=== PATIENT | female | born 1935 | race Caucasian/White ===

== ENCOUNTER → 2016-07-19 | Day surgery (SDC) | payer MEDICARE, BC ==
[~2016-07-19] VITALS: Ht 160 cm; Wt 63.5 kg
[~2016-07-19] MED LIST: AMOXICILLIN500 MG PO; ATIVAN0.5 MG PO; CATAPRES0.1 MG PO; CLARINEX5 MG PO; CRESTOR10 MG PO; DIOVAN320 MG PO; LASIX40 MG PO; METFORMIN500 MG PO; NORVASC5 MG PO; PREMARIN0.3 MG PO; PROTONIX40 MG PO; REGLAN10 MG PO; TOPROL-XL200 MG PO; ULTRAM50 MG PO
--- NOTE | ~2016-07-19 | O ---
[place], [place] OPERATIVE NOTE NAME: TEODORO AHUJA [facility] #: [id number] UNIT #: [id number] ROOM: DOCTOR: YAKOV CABRERA MD BIRTHDATE: [birth year] DOS: 07/19/2016 PREOPERATIVE DIAGNOSIS: Left gonzalez and left medial knee skin lesions. POSTOPERATIVE DIAGNOSIS: Left gonzalez and left medial knee skin lesions. PROCEDURE: Excision of left gonzalez and left medial knee skin lesions. SURGEON: Yakov Cabrera MD VOCATIONAL CASE MANAGER: MS4. ANESTHESIA: Local (1% plain lidocaine). INDICATIONS: This is an 81-year-old lady with multiple skin lesions in the past who is here for removal of 2 lesions on her left lower extremity, one of them is on the gonzalez anteriorly and the other one is on the left medial aspect of the knee. The procedure and its complications were explained to the patient in detail preoperatively and she agreed to proceed. DESCRIPTION OF PROCEDURE: After identifying the patient, the patient was brought to the operating suite and laid supine on the operating room table. The parts were then painted and draped in the usual sterile fashion. A time-out procedure was called. The incision was marked and local anesthesia was infiltrated. The skin lesions were then excised in its entirety and sent for histopathological diagnosis. Hemostasis was achieved with the help of electrocautery and the skin edges were then approximated with the help of 4-0 Vicryl in a subcuticular running fashion. Dressing was placed to both lesions. The patient tolerated the procedure well and was taken to the recovery room in stable fashion. There were no complications. Yakov Cabrera MD CM:OPRECORD:OPERATIVE NOTE [id number] YAKOV CABRERA MD 07/19/161946 interface
[2016-07-19 11:00] VITALS: BP 97/48
[2016-07-19 11:29] VITALS: BP 152/84
[2016-07-19 11:44] VITALS: BP 166/99
[2016-07-19 11:55] VITALS: BP 168/82
== END | disposition home or self-care (01) ==
LOC: SDC 07-18 14:00
DX: C44.729 Squamous cell carcinoma of skin of left lower limb, including hip (principal); E11.9 Type 2 diabetes mellitus without complications; K21.9 Gastro-esophageal reflux disease without esophagitis; I10 Essential (primary) hypertension; J45.909 Unspecified asthma, uncomplicated; G43.909 Migraine, unspecified, not intractable, without status migrainosus; E78.5 Hyperlipidemia, unspecified; Z90.710 Acquired absence of both cervix and uterus; Z98.890 Other specified postprocedural states

== ENCOUNTER → 2016-09-13 | Day surgery (SDC) | payer MEDICARE, BC ==
[~2016-09-13] VITALS: Ht 167.6 cm; Wt 63.5 kg
[2016-09-13 11:45] VITALS: BP 169/70
[2016-09-13 12:40] VITALS: BP 160/78
[2016-09-13 12:49] VITALS: BP 160/78
[2016-09-13 12:55] VITALS: BP 162/85
[2016-09-13 13:05] VITALS: BP 145/88
[2016-09-13 13:20] VITALS: BP 145/80
== END | disposition home or self-care (01) ==
LOC: SDC 09-11 12:30
DX: L57.0 Actinic keratosis (principal); E11.9 Type 2 diabetes mellitus without complications; K21.9 Gastro-esophageal reflux disease without esophagitis; I10 Essential (primary) hypertension; J45.909 Unspecified asthma, uncomplicated; Z90.49 Acquired absence of other specified parts of digestive tract; Z98.890 Other specified postprocedural states; Z88.1 Allergy status to other antibiotic agents; Z85.828 Personal history of other malignant neoplasm of skin; Z88.8 Allergy status to other drugs, medicaments and biological substances

== ENCOUNTER → 2017-04-05 | Outpatient (CLI) | payer MEDICARE, BC | END | disposition home or self-care (01) | LOC: RAD 03-12 11:00 | DX: Z13.820 Encounter for screening for osteoporosis (principal) ==

== ENCOUNTER 2017-05-31 15:00 | Inpatient (IN) | payer MEDICARE, BC ==
[~2017-05-31] VITALS: Wt 62.1 kg
--- NOTE | ~2017-05-31 | CON ---
[place], [place] REPORT OF CONSULTATION [id number] UN[facility] #: [id number] ROOM: 519 DOCTOR: RODNEY ARREOLA MD BIRTHDATE: [birth year] DOS: 06/01/2017 REASON FOR CONSULTATION: Syncope and tachycardia. HISTORY OF PRESENT ILLNESS: The patient is an 81-year-old patient with history of paroxysmal atrial fibrillation, hypertension, dyslipidemia, presents to Emergency Room after "syncope." Evidently, the patient was at a [facility] where this episode occurred. Initially, the patient felt feeling hot and she took her jacket off and then feeling dizzy and lightheaded and subsequently patient passed out. Family was there and her daughter, she tried to catch her and lower to the ground. The patient came around quickly and later on there was "some vomiting" and the patient did urinate. She denied any chest pain, palpitations. No fever and chills. No heart palpitations prior to this. She denies any shortness of breath or PND. No orthopnea. No headache. No tingling, numbness or weakness. No visual symptoms. No genitourinary symptoms. The patient admitted to the hospital and Cardiology was consulted for further recommendations. REVIEW OF SYSTEMS: Review of 10 systems negative except as mentioned above. PAST MEDICAL HISTORY: 1. Paroxysmal atrial fibrillation. 2. Chronic diastolic heart failure. 3. Hypertension. 4. Dyslipidemia. 5. Acid reflux. PAST SURGICAL HISTORY: History of cholecystectomy and appendicectomy. SOCIAL HISTORY: The patient does not drink or smoke, does not use illicit drugs. FAMILY HISTORY: Noncontributory due to her age. ALLERGIES: Noted including INDOMETHACIN, PROPOXYPHENE, SULFA and HYDROCODONE. HOME MEDICATIONS: Reviewed. PHYSICAL EXAMINATION: VITAL SIGNS: Blood pressure 160/83, pulse 69, respiratory rate was 16, weight 62.1 kilos. GENERAL: Alert, comfortable, in no acute distress. HEENT: Pupils are round and equal. No jaundice. Tongue was moist and pharynx clear. NECK: Supple. No distended neck veins. No carotid bruit. CHEST: Symmetrical, nontender. LUNGS: Clear to auscultation bilaterally. HEART: Regular rhythm, grade 1/6 systolic murmur. No palpable thrills. ABDOMEN: Benign, nontender. Bowel sounds normal. EXTREMITIES: Showed no edema. Distal pulses palpable. [place], [place] REPORT OF CONSULTATION NAME: [facility]O AHUJA [facility]: [id number] UNIT #: [id number] ROOM: [facility] DOCTOR: ELBA FARIAS,RODNEY BIRTHDATE: [birth year] SKIN: Warm and dry. No cyanosis. No clubbing. NEUROLOGIC: The patient is alert, oriented. No focal neurologic deficit. RECTAL: Deferred. REVIEW OF THE DIAGNOSTIC TESTS: EKG shows sinus rhythm, normal QT interval. Her echo from July 2614 showed normal LV function with mild mitral regurgitation and mild tricuspid regurgitation. Holter monitor in 2013 showed no significant arrhythmias. IMPRESSION: 1. Syncope, etiology unknown. 2. Rule out any gwendolyn or tachyarrhythmias. The patient has no orthostasis. 3. Paroxysmal atrial fibrillation, in sinus rhythm. Continue Pradaxa. 3. Hypertension. 4. Dyslipidemia. 5. 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 RECOMMENDATIONS: The patient would like to go home today. I would recommend outpatient echo for LV function and valvular function and also outpatient 2-4 week event monitor to assess for any gwendolyn or tachyarrhythmias. The patient is taking both amlodipine and Cardizem. I would recommend discontinuing her amlodipine. Further testing, which is echo and outpatient event monitor discussed with the patient, her , who is at bedside and all questions were answered. The patient insisting on going home today and she will be arranged for outpatient testing next week. The patient advised to drink plenty of fluids and avoid any dehydration or sudden change in the position. Currently, patient is in no acute heart failure, no chest pain. Her heart rates are stable. Hence, she may be discharged today per her request. RODNEY ARREOLA MD CM:CONSTR:REPORT OF CONSULTATION 162 06/01/17 1802 interface
--- NOTE | ~2017-05-31 | EKG ---
[place], [place] ELECTROCARDIOGRAM REPORT NAME: TEODORO AHUJA UNIT #: [id number] ROOM: [facility] DOCTOR: ELBA FARIAS,RODNEY BIRTHDATE: [birth year] DOS: 05/31/2017 TIME: 1536 IMPRESSION: 1. Sinus rhythm. 2. Baseline artifacts. 3. Normal QT interval. 4. No ischemic changes. RODNEY ARREOLA MD CM:EKGRPT:ELECTROCARDIOGRAM REPORT [id number] RODNEY ARREOLA MD
[2017-05-31 15:03] VITALS: BP 156/73
[2017-05-31 15:56] LABS: BILIRUBIN NEGATIVE (NEGATIVE); BLOOD 2+ (NEGATIVE); CLARITY CLEAR (CLEAR); COLOR YELLOW (YELLOW); GLUCOSE NEGATIVE (NEGATIVE); KETONE NEGATIVE (NEGATIVE); LEUKO ESTERASE NEGATIVE (NEGATIVE); NITRITE NEGATIVE (NEGATIVE); UROBILINOGEN 0.2 E.U./dl (0.2-1.0)
[2017-05-31 16:05] LABS: BASO % 0.4 % (0.0-1.0); EOS # 0.1 10*3/uL (0.0-0.4); EOS % 1.1 % (1.0-4.0); HEMATOCRIT 39.4 % (37.0-47.0); MEAN CELL VOLUME 90.6 fl (81.0-99.0); MEAN CORPUSCULAR HGB 29.9 pg (27.0-31.0); MEAN PLATELET VOLUME 10.3 fl (9.6-12.3); MONO % 10.8 % (3.0-9.0); NEUT # 5.9 10*3/uL (2.3-7.9); NEUT % 65.4 % (47.0-73.0); PLATELET COUNT AUTOMATED 261 10*3/uL (130-400); RED BLOOD COUNT 4.35 10*6/uL (4.10-5.10); RED CELL DISTRI WIDTH 14.3 % (0-14.5)
[2017-05-31 16:06] LABS: BACTERIA TRACE; WBC 0-2 wbc/hpf (0-5)
[2017-05-31 16:14] LABS: ACT PARTIAL THROMBO TIME 34.8 SECONDS (20.8-31.5)
[2017-05-31 16:24] LABS: ALBUMIN 3.9 gm/dl (3.1-4.5); ALKALINE PHOSPHATASE 25 U/L (45-117); BUN 11 mg/dl (7-24); CHLORIDE 100 mmol/L (98-107); LIPASE 291 U/L (73-393); SGOT/AST 17 IU/L (3-35); SGPT/ALT 14 U/L (12-78); SODIUM 137 mmol/L (136-145); TOTAL PROTEIN 7.5 gm/dL (6.4-8.2)
[2017-05-31 16:26] LABS: TROPONIN I < 0.015 ng/ml (<0.045)
[2017-05-31 16:50] VITALS: BP 120/54; BP 151/91
[2017-05-31] MEDS ORDERED: CARTIA XT180 MG PO (18:08)
[2017-05-31] MEDS ORDERED: PRADAXA150 MG PO (18:08)
[2017-05-31 18:32] VITALS: BP 155/83
[2017-05-31] MEDS ORDERED: OCEAN104 ML NAS (18:47)
[2017-05-31 20:00] VITALS: BP 138/69
[2017-06-01] VITALS: BP 147/71
[2017-06-01 06:48] LABS: BASO % 0.6 % (0.0-1.0); EOS # 0.1 10*3/uL (0.0-0.4); EOS % 2.1 % (1.0-4.0); HEMATOCRIT 35.5 % (37.0-47.0); HEMOGLOBIN 11.7 g/dl (12.0-16.0); LYMPH # 2.8 10*3/uL (1.3-4.4); MEAN CELL VOLUME 90.8 fl (81.0-99.0); MEAN CORPUSCULAR HGB 29.9 pg (27.0-31.0); MEAN PLATELET VOLUME 10.5 fl (9.6-12.3); MONO % 15.7 % (3.0-9.0); NEUT # 2.5 10*3/uL (2.3-7.9); NEUT % 38.4 % (47.0-73.0); PLATELET COUNT AUTOMATED 228 10*3/uL (130-400); RED BLOOD COUNT 3.91 10*6/uL (4.10-5.10); RED CELL DISTRI WIDTH 14.5 % (0-14.5); WHITE BLOOD COUNT 6.5 10*3/uL (4.8-10.8)
[2017-06-01 07:13] LABS: ALBUMIN 3.2 gm/dl (3.1-4.5); ALKALINE PHOSPHATASE 22 U/L (45-117); BUN 8 mg/dl (7-24); CHLORIDE 107 mmol/L (98-107); CHOLESTEROL 123 mg/dL (<200); CREATININE 0.68 mg/dL (0.55-1.02); FREE T4 0.98 ng/dl (0.76-1.46); HDL CHOLESTEROL 54 mg/dl (40-60); LDL CHOLESTEROL 44 mg/dL (9-159); PHOSPHOROUS 3.7 mg/dL (2.5-4.9); POTASSIUM 3.6 mmol/L (3.5-5.1); SGOT/AST 10 IU/L (3-35); SGPT/ALT 13 U/L (12-78); SODIUM 142 mmol/L (136-145); TOTAL PROTEIN 6.1 gm/dL (6.4-8.2); TRIGLYCERIDES 126 mg/dl (<150); VLDL CHOLESTEROL 25 mg/dL (6-40)
[2017-06-01 08:00] VITALS: BP 159/70
[2017-06-01 08:13] LABS: VITAMIN D, 25-HYDROXY 53.2 ng/mL (30-100)
[2017-06-01] MEDS ORDERED: PREDNISONE10 MG PO (09:58)
[2017-06-01] MEDS ORDERED: AUGMENTIN 875875 MG PO (09:58)
[2017-06-01 12:00] VITALS: BP 160/83
== END 2017-06-01 14:00 | disposition left against medical advice (07) | DRG 312 ==
LOC: ED 15:00 → EDHOLD 16:53 → 5E 16:54
PROVIDERS: Emergency Medicine; Internal Medicine Hospice and Palliative Medicine
DX: R55 Syncope and collapse (principal); R65.11 Systemic inflammatory response syndrome (SIRS) of non-infectious origin with acute organ dysfunction; E11.65 Type 2 diabetes mellitus with hyperglycemia; E87.2 Acidosis; I50.32 Chronic diastolic (congestive) heart failure; I11.0 Hypertensive heart disease with heart failure; I49.5 Sick sinus syndrome; D72.810 Lymphocytopenia; I48.0 Paroxysmal atrial fibrillation; Z53.21 Procedure and treatment not carried out due to patient leaving prior to being seen by health care provider; K21.9 Gastro-esophageal reflux disease without esophagitis; E78.5 Hyperlipidemia, unspecified; R00.0 Tachycardia, unspecified; Z90.49 Acquired absence of other specified parts of digestive tract; Z82.49 Family history of ischemic heart disease and other diseases of the circulatory system; Z80.3 Family history of malignant neoplasm of breast; Z83.6 Family history of other diseases of the respiratory system; Z88.1 Allergy status to other antibiotic agents; Z88.2 Allergy status to sulfonamides; Z88.8 Allergy status to other drugs, medicaments and biological substances; Z79.899 Other long term (current) drug therapy; Z90.710 Acquired absence of both cervix and uterus

== ENCOUNTER → 2017-06-04 | Outpatient (CLI) | payer MEDICARE, BC ==
[~2017-06-04] MED LIST changes: +AUGMENTIN 875875 MG PO; +CARTIA XT180 MG PO; +OCEAN104 ML NAS; +PRADAXA150 MG PO; +PREDNISONE10 MG PO
== END | disposition home or self-care (01) ==
LOC: CARD 07:46
DX: R55 Syncope and collapse (principal)

== ENCOUNTER 2017-12-02 11:24 | Inpatient (IN) | payer MEDICARE, BC ==
[~2017-12-02] VITALS: Ht 160 cm; Wt 65.8 kg
--- NOTE | ~2017-12-02 | EKG ---
[place], [place] ELECTROCARDIOGRAM REPORT NAME: TEODORO AHUJA UNIT #: [id number] ROOM: 425 DOCTOR: TELLY DRAFT REPORT BIRTHDATE: [birth year] [facility] Test Date: 2017-12-02 Test Time: 11:52:57 Pat Name: TEODORO AHUJA Department: Room: 425 Gender: F Senior Producer: Yue Bustamante : 1935 Requested By: DULCE MARIA MUSTAFA Order Number: [id number] Reading MD: Marciano Vann MD Measurements Intervals [place] Rate: 83 P: 21 DC: 177 QRS: -8 QRSD: 83 T: 26 QT: 399 QTc: 469 Interpretive Statements Sinus rhythm Electronically Signed On 12-02-2017 20:46:41 PDT by Marciano Vann MD CM:EKGRPT:ELECTROCARDIOGRAM REPORT [id number] DULCE MARIA VEGA DRAFT REPORT DULCE MARIA MUSTAFA DO
[2017-12-02 11:30] VITALS: BP 123/71
[2017-12-02 11:48] LABS: BASO # 0.1 10*3/uL (0.0-0.1); BASO % 0.6 % (0.0-1.0); EOS # 0.1 10*3/uL (0.0-0.4); EOS % 0.6 % (1.0-4.0); HEMATOCRIT 38.5 % (37.0-47.0); HEMOGLOBIN 12.6 g/dl (12.0-16.0); LYMPH # 2.4 10*3/uL (1.3-4.4); LYMPH % 27.2 % (27.0-41.0); MEAN CELL VOLUME 86.7 fl (81.0-99.0); MEAN CORPUSCULAR HGB 28.4 pg (27.0-31.0); MEAN CORPUSCULAR HGB CONC 32.7 g/dl (33.0-37.0); MEAN PLATELET VOLUME 9.6 fl (9.6-12.3); MONO # 0.7 10*3/uL (0.1-1.0); MONO % 7.6 % (3.0-9.0); NEUT # 5.6 10*3/uL (2.3-7.9); NEUT % 63.7 % (47.0-73.0); PLATELET COUNT AUTOMATED 329 10*3/uL (130-400); RED BLOOD COUNT 4.44 10*6/uL (4.10-5.10); RED CELL DISTRI WIDTH 15.1 % (0-14.5); WHITE BLOOD COUNT 8.8 10*3/uL (4.8-10.8)
[2017-12-02 11:57] LABS: ACT PARTIAL THROMBO TIME 44.1 SECONDS (20.8-31.5); INTERNATIONAL NORM RATIO 1.1 (2.0-3.5)
[2017-12-02 12:03] LABS: ALBUMIN 4.1 gm/dl (3.1-4.5); ALKALINE PHOSPHATASE 33 U/L (45-117); BUN 10 mg/dl (7-24); CHLORIDE 101 mmol/L (98-107); CREATININE 0.99 mg/dL (0.55-1.02); LIPASE 323 U/L (73-393); POTASSIUM 4.2 mmol/L (3.5-5.1); SGOT/AST 15 IU/L (3-35); SGPT/ALT 16 U/L (12-78); SODIUM 137 mmol/L (136-145)
[2017-12-02 12:11] LABS: TROPONIN I < 0.015 ng/ml (<0.045)
[2017-12-02 12:15] VITALS: BP 125/65
[2017-12-02 14:20] VITALS: BP 135/67
[2017-12-02 14:25] VITALS: BP 126/64
[2017-12-02] MEDS ORDERED: DIOVAN320 MG PO (15:21)
[2017-12-02] MEDS ORDERED: COZAAR100 MG PO (15:23)
[2017-12-02] MEDS ORDERED: REGLAN10 M1 PO (15:25)
[2017-12-02] MEDS ORDERED: PREMARIN0.3 M1 PO (15:26)
[2017-12-02 16:00] VITALS: BP 122/63
[2017-12-02 20:00] VITALS: BP 99/53
[2017-12-03] VITALS: BP 134/61
[2017-12-03 07:03] LABS: BASO % 0.2 % (0.0-1.0); HEMATOCRIT 34.3 % (37.0-47.0); HEMOGLOBIN 11.1 g/dl (12.0-16.0); LYMPH # 0.8 10*3/uL (1.3-4.4); LYMPH % 14.8 % (27.0-41.0); MEAN CELL VOLUME 86.2 fl (81.0-99.0); MEAN CORPUSCULAR HGB 27.9 pg (27.0-31.0); MEAN CORPUSCULAR HGB CONC 32.4 g/dl (33.0-37.0); MEAN PLATELET VOLUME 10.1 fl (9.6-12.3); MONO # 0.1 10*3/uL (0.1-1.0); MONO % 1.2 % (3.0-9.0); NEUT # 4.7 10*3/uL (2.3-7.9); NEUT % 83.3 % (47.0-73.0); PLATELET COUNT AUTOMATED 269 10*3/uL (130-400); RED BLOOD COUNT 3.98 10*6/uL (4.10-5.10); RED CELL DISTRI WIDTH 14.7 % (0-14.5); WHITE BLOOD COUNT 5.7 10*3/uL (4.8-10.8)
[2017-12-03 07:32] LABS: BUN 10 mg/dl (7-24); CHLORIDE 104 mmol/L (98-107); CREATININE 0.69 mg/dL (0.55-1.02); POTASSIUM 3.7 mmol/L (3.5-5.1); SODIUM 139 mmol/L (136-145)
[2017-12-03 07:42] LABS: THYROID STIM HORMONE (HS) 0.834 uIU/ml (0.358-4.75)
[2017-12-03 12:00] VITALS: BP 136/65
[2017-12-03 16:00] VITALS: BP 126/61
[2017-12-03 20:00] VITALS: BP 126/59
[2017-12-04 08:01] LABS: BASO % 0.1 % (0.0-1.0); EOS % 0.1 % (1.0-4.0); HEMATOCRIT 33.8 % (37.0-47.0); HEMOGLOBIN 11.2 g/dl (12.0-16.0); LYMPH # 1.9 10*3/uL (1.3-4.4); LYMPH % 14.6 % (27.0-41.0); MEAN CELL VOLUME 84.9 fl (81.0-99.0); MEAN CORPUSCULAR HGB 28.1 pg (27.0-31.0); MEAN CORPUSCULAR HGB CONC 33.1 g/dl (33.0-37.0); MEAN PLATELET VOLUME 9.3 fl (9.6-12.3); MONO # 1.3 10*3/uL (0.1-1.0); NEUT # 9.5 10*3/uL (2.3-7.9); NEUT % 74.6 % (47.0-73.0); PLATELET COUNT AUTOMATED 286 10*3/uL (130-400); RED BLOOD COUNT 3.98 10*6/uL (4.10-5.10); RED CELL DISTRI WIDTH 15.2 % (0-14.5); WHITE BLOOD COUNT 12.8 10*3/uL (4.8-10.8)
[2017-12-04 08:19] LABS: ALBUMIN 3.6 gm/dl (3.1-4.5); ALKALINE PHOSPHATASE 20 U/L (45-117); BUN 14 mg/dl (7-24); CHLORIDE 107 mmol/L (98-107); CREATININE 0.98 mg/dL (0.55-1.02); POTASSIUM 3.5 mmol/L (3.5-5.1); SGOT/AST 6 IU/L (3-35); SGPT/ALT 11 U/L (12-78); SODIUM 142 mmol/L (136-145); TOTAL PROTEIN 7.4 gm/dL (6.4-8.2)
[2017-12-04 12:00] VITALS: BP 119/76
[2017-12-04] MEDS ORDERED: PREDNISONE10 MG PO (13:30)
[2017-12-04] MEDS ORDERED: LEVAQUIN750 M1 PO (13:30)
== END 2017-12-04 16:30 | disposition home or self-care (01) | DRG 178 ==
LOC: ED 11:24 → EDHOLD 13:04 → 4E 13:04
PROVIDERS: Emergency Medicine; Family Medicine
DX: J15.6 Pneumonia due to other Gram-negative bacteria (principal); J45.21 Mild intermittent asthma with (acute) exacerbation; E87.2 Acidosis; I50.30 Unspecified diastolic (congestive) heart failure; K21.9 Gastro-esophageal reflux disease without esophagitis; E11.65 Type 2 diabetes mellitus with hyperglycemia; I11.0 Hypertensive heart disease with heart failure; I48.91 Unspecified atrial fibrillation; Z90.49 Acquired absence of other specified parts of digestive tract; Z90.710 Acquired absence of both cervix and uterus; Z82.49 Family history of ischemic heart disease and other diseases of the circulatory system; Z80.3 Family history of malignant neoplasm of breast; Z83.6 Family history of other diseases of the respiratory system; Z88.2 Allergy status to sulfonamides; Z88.8 Allergy status to other drugs, medicaments and biological substances; Z88.6 Allergy status to analgesic agent; Z79.84 Long term (current) use of oral hypoglycemic drugs

== ENCOUNTER → 2020-05-13 | Outpatient (CLI) | payer MEDICARE, BC ==
[~2020-05-13] MED LIST changes: +COZAAR100 MG PO; +LEVAQUIN750 M1 PO; +PREMARIN0.3 M1 PO; +REGLAN10 M1 PO
== END | disposition home or self-care (01) ==
LOC: ORTHO 10:24
PROVIDERS: ATTEND Orthopaedic Surgery
DX: M17.12 Unilateral primary osteoarthritis, left knee (principal)

== ENCOUNTER → 2021-04-27 | Outpatient (CLI) | payer MEDICARE | END | disposition home or self-care (01) | LOC: RAD 12:19 | PROVIDERS: ATTEND Nurse Practitioner Primary Care | DX: M25.551 Pain in right hip (principal) ==

== ENCOUNTER 2021-06-30 12:16 | Emergency (ER) | payer MEDICARE, BC ==
[~2021-06-30] VITALS: Wt 70.8 kg
[2021-06-30 12:46] LABS: BASO % 0.5 % (0.0-1.0); EOS # 0.1 10*3/uL (0.0-0.4); EOS % 2.3 % (1.0-4.0); HEMATOCRIT 42.2 % (37.0-47.0); LYMPH # 1.6 10*3/uL (1.3-4.4); LYMPH % 25.8 % (27.0-41.0); MEAN CELL VOLUME 79.3 fl (81.0-99.0); MEAN CORPUSCULAR HGB 24.6 pg (27.0-31.0); MEAN PLATELET VOLUME 10.4 fl (9.6-12.3); MONO # 0.6 10*3/uL (0.1-1.0); MONO % 9.4 % (3.0-9.0); NEUT # 3.7 10*3/uL (2.3-7.9); NEUT % 61.8 % (47.0-73.0); PLATELET COUNT AUTOMATED 277 10*3/uL (130-400); RED BLOOD COUNT 5.32 10*6/uL (4.10-5.10); RED CELL DISTRI WIDTH 17.4 % (0-14.5); WHITE BLOOD COUNT 6.1 10*3/uL (4.8-10.8)
[2021-06-30] MEDS ORDERED: GLIPIZIDE10 M2 PO (12:55)
[2021-06-30 12:58] LABS: ACT PARTIAL THROMBO TIME 40.4 SECONDS (20.0-32.1); INTERNATIONAL NORM RATIO 1.1 (2.0-3.5)
[2021-06-30 13:05] LABS: ALKALINE PHOSPHATASE 48 U/L (45-117); BUN 10 mg/dl (7-24); CHLORIDE 104 mmol/L (98-107); CREATININE 1.03 mg/dL (0.55-1.02); LIPASE 338 U/L (73-393); POTASSIUM 3.6 mmol/L (3.5-5.1); SGOT/AST 9 IU/L (3-35); SGPT/ALT 14 U/L (12-78); SODIUM 138 mmol/L (136-145); TOTAL PROTEIN 7.6 gm/dL (6.4-8.2)
[2021-06-30 13:22] LABS: BILIRUBIN Negative (Negative); BLOOD Negative (Negative); CLARITY Cloudy (Clear); COLOR Yellow (Yellow); GLUCOSE 2+ (Negative); KETONE Negative (Negative); LEUKO ESTERASE Negative (Negative); NITRITE Negative (Negative); PH 5.5 (4.5-8.0); UROBILINOGEN 0.2 E.U./dl (0.0-1.0)
[2021-06-30 13:46] LABS: BACTERIA 4+
== END 2021-06-30 14:22 | disposition home or self-care (01) ==
LOC: ED 12:16
PROVIDERS: Emergency Medicine
DX: E11.65 Type 2 diabetes mellitus with hyperglycemia (principal); Z88.2 Allergy status to sulfonamides; Z88.1 Allergy status to other antibiotic agents; Z88.8 Allergy status to other drugs, medicaments and biological substances; Z79.899 Other long term (current) drug therapy; Z90.49 Acquired absence of other specified parts of digestive tract; Z90.710 Acquired absence of both cervix and uterus; Z87.891 Personal history of nicotine dependence

== ENCOUNTER → 2022-04-09 | Outpatient (CLI) | payer MEDICARE, BC ==
[~2022-04-09] MED LIST changes: +ACTOS15 M1 PO; +BASAG SOL SC; +CEFDINIR300 MG PO; +CELEBREX100 MG PO; +ELIQUIS5 M1 PO; +GLIPIZIDE10 M2 PO; +LEVOFLOXACIN750 M2 PO; +VICTOZA 2-0.6 MG/0.1 SQ
[2022-04-09 14:03] LABS: BASO % 0.6 % (0.0-1.0); EOS # 0.1 10*3/uL (0.0-0.4); EOS % 1.2 % (1.0-4.0); HEMATOCRIT 39.2 % (37.0-47.0); LYMPH # 2.1 10*3/uL (1.3-4.4); LYMPH % 32.1 % (27.0-41.0); MEAN CELL VOLUME 81.5 fl (81.0-99.0); MEAN CORPUSCULAR HGB 24.9 pg (27.0-31.0); MEAN CORPUSCULAR HGB CONC 30.6 g/dl (33.0-37.0); MEAN PLATELET VOLUME 10.1 fl (9.6-12.3); MONO # 0.7 10*3/uL (0.1-1.0); NEUT # 3.7 10*3/uL (2.3-7.9); NEUT % 55.9 % (47.0-73.0); PLATELET COUNT AUTOMATED 312 10*3/uL (130-400); RED BLOOD COUNT 4.81 10*6/uL (4.10-5.10); RED CELL DISTRI WIDTH 17.8 % (0-14.5); WHITE BLOOD COUNT 6.6 10*3/uL (4.8-10.8)
[2022-04-09 14:22] LABS: ALKALINE PHOSPHATASE 44 U/L (46-116); BUN 11 mg/dl (9-23); CHLORIDE 101 mmol/L (98-107); FREE T4 1.11 ng/dl (0.89-1.76); POTASSIUM 4.1 mmol/L (3.4-5.1); THYROID STIM HORMONE (HS) 4.833 uIU/ml (0.550-4.780); TOTAL PROTEIN 7.1 gm/dL (6.0-8.0)
[2022-04-09 14:28] LABS: SGPT/ALT < 7 U/L (10-49)
== END | disposition home or self-care (01) ==
LOC: LAB 13:02
PROVIDERS: ATTEND Nurse Practitioner Family
DX: L92.0 Granuloma annulare (principal); I10 Essential (primary) hypertension; R73.9 Hyperglycemia, unspecified; R71.8 Other abnormality of red blood cells

== ENCOUNTER 2023-06-19 16:13 | Inpatient (IN) | payer MEDICARE, BC ==
[~2023-06-19] VITALS: Ht 160 cm; Wt 77.2 kg
[2023-06-19 16:26] VITALS: BP 167/72
[2023-06-19] MEDS ORDERED: Albuterol Sulf/Ipratropium 3 ML VIAL NEB ONE (16:45)
[2023-06-19] MEDS ORDERED: methylPREDNISolone sod succ 125 MG VIAL IV ONE (16:45)
[2023-06-19 17:08] LABS: BASO % 0.3 % (0.0-1.0); EOS # 0.1 10*3/uL (0.0-0.4); EOS % 0.8 % (1.0-4.0); HEMATOCRIT 42.8 % (37.0-47.0); LYMPH # 2.3 10*3/uL (1.3-4.4); MEAN CELL VOLUME 90.7 fl (81.0-99.0); MEAN PLATELET VOLUME 10.2 fl (9.6-12.3); MONO # 0.8 10*3/uL (0.1-1.0); MONO % 11.4 % (3.0-9.0); NEUT % 55.4 % (47.0-73.0); PLATELET COUNT AUTOMATED 207 10*3/uL (130-400); RED BLOOD COUNT 4.72 10*6/uL (4.10-5.10); RED CELL DISTRI WIDTH 15.5 % (0-14.5); WHITE BLOOD COUNT 7.3 10*3/uL (4.8-10.8)
[2023-06-19 17:23] LABS: ACT PARTIAL THROMBO TIME 29.2 SECONDS (20.0-32.1)
[2023-06-19 17:29] LABS: ALKALINE PHOSPHATASE 38 U/L (46-116); BUN 12 mg/dl (9-23); CHLORIDE 103 mmol/L (98-107); LIPASE 61 U/L (12-53); POTASSIUM 3.3 mmol/L (3.4-5.1); SGPT/ALT 7 U/L (5-49); TOTAL PROTEIN 6.9 gm/dL (6.0-8.0)
[2023-06-19] MEDS ORDERED: SODIUM CHLORIDE 0.9% 1,000 ML IV ONE (17:45)
[2023-06-19 17:59] VITALS: BP 159/83
[2023-06-19 18:00] LABS: BILIRUBIN Negative (Negative); BLOOD Trace-Intact (Negative); CLARITY Clear (Clear); COLOR Yellow (Yellow); GLUCOSE Negative (Negative); KETONE Negative (Negative); LEUKO ESTERASE Trace (Negative); NITRITE Positive (Negative)
[2023-06-19] MEDS ORDERED: LEVOFLOXACIN 150 ML IV ONE (18:05)
[2023-06-19] MEDS ORDERED: POTASSIUM CHLORIDE 20 MEQ TAB PO ONE (18:05)
[2023-06-19 18:06] LABS: BACTERIA 3+
[2023-06-19] MEDS ORDERED: TRAMADOL HCL50 MG PO (18:08)
[2023-06-19] MEDS ORDERED: TOPROL XL200 MG PO (18:09)
[2023-06-19] MEDS ORDERED: ELIQUIS5 M1 PO (18:09)
[2023-06-19] MEDS ORDERED: COZAAR50 M1 PO (18:09)
[2023-06-19] MEDS ORDERED: CARDIZEM CD180 MG PO (18:13)
[2023-06-19] MEDS ORDERED: CRESTOR5 M1 PO (18:14)
[2023-06-19] MEDS ORDERED: ATARAX,VISTARIL10 MG PO (18:15)
[2023-06-19] MEDS ORDERED: VITAMIN D31250 MC1 PO (18:16)
[2023-06-19] MEDS ORDERED: BASAG SOL IJ (18:17)
[2023-06-19 19:39] VITALS: BP 156/70
[2023-06-19] MEDS ORDERED: TEMAZEPAM 15 MG CAP PO PRN (20:10)
[2023-06-19] MEDS ORDERED: Magnesium Hydroxide 30 ML UDC PO PRN (20:10)
[2023-06-19] MEDS ORDERED: BISACODYL 5 MG TAB PO PRN (20:10)
[2023-06-19] MEDS ORDERED: ACETAMINOPHEN 325 MG TAB PO PRN (20:10)
[2023-06-19] MEDS ORDERED: DEXTROSE 10 % IN WATER 250 ML IV PRN (20:10)
[2023-06-19] MEDS ORDERED: ACETAMINOPHEN 650 MG SUPP R PRN (20:10)
[2023-06-19] MEDS ORDERED: BISACODYL 10 MG SUPP R PRN (20:10)
[2023-06-19] MEDS ORDERED: Albuterol Sulf/Ipratropium 3 ML VIAL NEB PRN (20:15)
[2023-06-19 21:05] VITALS: BP 139/62
[2023-06-19] MEDS ORDERED: GUAIFENESIN 600 MG TAB ER PO SCH (22:00)
[2023-06-19] MEDS ORDERED: INSULIN LISPRO 1 UNIT/0.01 ML SQ SCH (22:00)
[2023-06-20] VITALS: BP 128/62
[2023-06-20 06:43] LABS: LYMPH # 0.8 10*3/uL (1.3-4.4); LYMPH % 17.7 % (27.0-41.0); MEAN CELL VOLUME 90.3 fl (81.0-99.0); MEAN CORPUSCULAR HGB 29.2 pg (27.0-31.0); MEAN CORPUSCULAR HGB CONC 32.3 g/dl (33.0-37.0); MEAN PLATELET VOLUME 10.7 fl (9.6-12.3); MONO # 0.1 10*3/uL (0.1-1.0); MONO % 2.5 % (3.0-9.0); NEUT # 3.4 10*3/uL (2.3-7.9); NEUT % 79.3 % (47.0-73.0); PLATELET COUNT AUTOMATED 205 10*3/uL (130-400); RED BLOOD COUNT 4.32 10*6/uL (4.10-5.10); RED CELL DISTRI WIDTH 15.4 % (0-14.5); WHITE BLOOD COUNT 4.3 10*3/uL (4.8-10.8)
[2023-06-20 06:44] LABS: BUN 12 mg/dl (9-23); CHLORIDE 106 mmol/L (98-107); POTASSIUM 3.8 mmol/L (3.4-5.1)
[2023-06-20 08:00] VITALS: BP 135/77
[2023-06-20] MEDS ORDERED: XARELTO20 M1 PO (08:55)
[2023-06-20] MEDS ORDERED: methylPREDNISolone sod succ 40 MG VIAL IV SCH (10:00)
[2023-06-20] MEDS ORDERED: LORATADINE 10 MG TAB PO SCH (10:00)
[2023-06-20] MEDS ORDERED: APIXABAN 5 MG TAB PO SCH (10:00)
[2023-06-20] MEDS ORDERED: CELECOXIB 50 MG PO SCH (10:00)
[2023-06-20] MEDS ORDERED: RIVAROXABAN 15 MG TAB PO SCH (10:00)
[2023-06-20] MEDS ORDERED: METOPROLOL SUCCINATE XR 100 MG TAB PO SCH (10:00)
[2023-06-20] MEDS ORDERED: ATORVASTATIN CALCIUM 20 MG TAB PO SCH (10:00)
[2023-06-20] MEDS ORDERED: DILTIAZEM CD 180 MG CAP PO SCH (10:00)
[2023-06-20 12:00] VITALS: BP 155/74
[2023-06-20 16:00] VITALS: BP 138/73
[2023-06-20 20:00] VITALS: BP 153/61
[2023-06-20] MEDS ORDERED: Insulin Glargine, Recombinan 1 UNIT/0.01 ML SC SCH (22:00)
[2023-06-20] MEDS ORDERED: RIVAROXABAN 20 MG TAB PO SCH ×2 (22:00)
[2023-06-21] VITALS: BP 148/69
[2023-06-21 05:44] LABS: BUN 17 mg/dl (9-23); CHLORIDE 105 mmol/L (98-107); POTASSIUM 3.7 mmol/L (3.4-5.1)
[2023-06-21] MEDS ORDERED: Pantoprazole Sodium 40 MG TAB PO SCH (06:00)
[2023-06-21 06:28] LABS: BASO % 0.1 % (0.0-1.0); LYMPH # 1.4 10*3/uL (1.3-4.4); LYMPH % 10.4 % (27.0-41.0); MEAN CELL VOLUME 90.1 fl (81.0-99.0); MEAN CORPUSCULAR HGB 29.3 pg (27.0-31.0); MEAN CORPUSCULAR HGB CONC 32.6 g/dl (33.0-37.0); MEAN PLATELET VOLUME 10.4 fl (9.6-12.3); MONO # 0.7 10*3/uL (0.1-1.0); NEUT # 11.2 10*3/uL (2.3-7.9); NEUT % 83.7 % (47.0-73.0); PLATELET COUNT AUTOMATED 244 10*3/uL (130-400); RED BLOOD COUNT 4.33 10*6/uL (4.10-5.10); RED CELL DISTRI WIDTH 15.5 % (0-14.5); WHITE BLOOD COUNT 13.3 10*3/uL (4.8-10.8)
[2023-06-21 08:00] VITALS: BP 137/54
[2023-06-21] MEDS ORDERED: methylPREDNISolone sod succ 40 MG VIAL IV SCH (09:21)
[2023-06-21 12:00] VITALS: BP 135/57
[2023-06-21 16:00] VITALS: BP 139/65
[2023-06-21] MEDS ORDERED: LEVOFLOXACIN 150 ML IV SCH (16:00)
[2023-06-21 20:00] VITALS: BP 146/88
[2023-06-21] MEDS ORDERED: Albuterol Sulf/Ipratropium 3 ML VIAL NEB SCH (20:15)
[2023-06-22] VITALS: BP 143/53
[2023-06-22 05:59] LABS: BUN 17 mg/dl (9-23); CHLORIDE 105 mmol/L (98-107); POTASSIUM 3.4 mmol/L (3.4-5.1)
[2023-06-22 06:08] LABS: MEAN CELL VOLUME 89.8 fl (81.0-99.0); MEAN CORPUSCULAR HGB 29.3 pg (27.0-31.0); MEAN CORPUSCULAR HGB CONC 32.6 g/dl (33.0-37.0); MEAN PLATELET VOLUME 10.5 fl (9.6-12.3); PLATELET COUNT AUTOMATED 240 10*3/uL (130-400); RED BLOOD COUNT 4.23 10*6/uL (4.10-5.10); RED CELL DISTRI WIDTH 15.1 % (0-14.5); WHITE BLOOD COUNT 13.4 10*3/uL (4.8-10.8)
[2023-06-22 06:09] LABS: MANUAL DIFF REFLEX YES
[2023-06-22 07:01] LABS: PLATELET SUFFICIENCY NORMAL (NORMAL); TOTAL CELLS COUNTED 100 #CELLS
[2023-06-22 08:00] VITALS: BP 144/71
[2023-06-22 12:00] VITALS: BP 150/71
[2023-06-22 16:00] VITALS: BP 158/78
[2023-06-22 20:00] VITALS: BP 154/78
[2023-06-23] VITALS: BP 116/62
[2023-06-23 06:16] LABS: BASO % 0.1 % (0.0-1.0); HEMATOCRIT 39.7 % (37.0-47.0); LYMPH # 0.7 10*3/uL (1.3-4.4); LYMPH % 5.4 % (27.0-41.0); MEAN CELL VOLUME 87.3 fl (81.0-99.0); MEAN CORPUSCULAR HGB CONC 33.2 g/dl (33.0-37.0); MEAN PLATELET VOLUME 10.2 fl (9.6-12.3); MONO # 0.6 10*3/uL (0.1-1.0); NEUT # 11.2 10*3/uL (2.3-7.9); NEUT % 88.3 % (47.0-73.0); PLATELET COUNT AUTOMATED 280 10*3/uL (130-400); RED BLOOD COUNT 4.55 10*6/uL (4.10-5.10); RED CELL DISTRI WIDTH 15.2 % (0-14.5); WHITE BLOOD COUNT 12.7 10*3/uL (4.8-10.8)
[2023-06-23 07:17] LABS: BUN 17 mg/dl (9-23); CHLORIDE 106 mmol/L (98-107); POTASSIUM 3.3 mmol/L (3.4-5.1)
[2023-06-23 08:00] VITALS: BP 134/88
[2023-06-23] MEDS ORDERED: POTASSIUM CHLORIDE 20 MEQ TAB PO ONE (08:20)
[2023-06-23 12:00] VITALS: BP 156/68; BP 90/48
[2023-06-23 16:00] VITALS: BP 161/56
[2023-06-23 20:00] VITALS: BP 160/77
[2023-06-23] MEDS ORDERED: methylPREDNISolone sod succ 40 MG VIAL IV SCH (22:00)
[2023-06-24] VITALS: BP 152/52
[2023-06-24 05:30] LABS: BUN 17 mg/dl (9-23); CHLORIDE 106 mmol/L (98-107); POTASSIUM 3.6 mmol/L (3.4-5.1)
[2023-06-24 08:00] VITALS: BP 154/64
[2023-06-24 12:00] VITALS: BP 136/74
[2023-06-24] MEDS ORDERED: hydrOXYzine hydrochloride 10 MG TAB PO PRN (12:00)
[2023-06-24 16:00] VITALS: BP 154/64
[2023-06-24 20:00] VITALS: BP 172/65
[2023-06-25 00:11] VITALS: BP 134/67
[2023-06-25 06:26] LABS: BASO % 0.2 % (0.0-1.0); HEMATOCRIT 41.6 % (37.0-47.0); LYMPH # 0.7 10*3/uL (1.3-4.4); LYMPH % 7.6 % (27.0-41.0); MEAN CELL VOLUME 87.6 fl (81.0-99.0); MEAN CORPUSCULAR HGB 28.6 pg (27.0-31.0); MEAN CORPUSCULAR HGB CONC 32.7 g/dl (33.0-37.0); MEAN PLATELET VOLUME 9.8 fl (9.6-12.3); MONO # 0.5 10*3/uL (0.1-1.0); MONO % 5.6 % (3.0-9.0); NEUT # 7.4 10*3/uL (2.3-7.9); NEUT % 84.7 % (47.0-73.0); NUCLEATED RED BLOOD CELL 0.2 % (0.0-0.0); PLATELET COUNT AUTOMATED 260 10*3/uL (130-400); RED BLOOD COUNT 4.75 10*6/uL (4.10-5.10); RED CELL DISTRI WIDTH 14.8 % (0-14.5); WHITE BLOOD COUNT 8.8 10*3/uL (4.8-10.8)
[2023-06-25 06:45] LABS: BUN 16 mg/dl (9-23); CHLORIDE 106 mmol/L (98-107); POTASSIUM 3.6 mmol/L (3.4-5.1)
[2023-06-25 08:00] VITALS: BP 152/78
[2023-06-25 12:00] VITALS: BP 154/66
[2023-06-25 16:00] VITALS: BP 152/96
[2023-06-25 20:00] VITALS: BP 168/77
[2023-06-26] VITALS (8 sets, daily range): BP systolic 139–180; BP diastolic 75–93
[2023-06-26 06:40] LABS: BUN 17 mg/dl (9-23); CHLORIDE 106 mmol/L (98-107)
[2023-06-26] MEDS ORDERED: Lidocaine Hydrochloride 4% 5 ML AMP NEB ONE (08:50)
[2023-06-26] MEDS ORDERED: Albuterol Sulfate 2.5 MG/0.5 ML VIAL NEB ONE ×2 (08:50→09:03)
[2023-06-26] MEDS ORDERED: Lidocaine Hydrochloride 4% 5 ML AMP ONE (09:02)
[2023-06-26] MEDS ORDERED: SODIUM CHLORIDE 0.9% 1,000 ML IV ONE (09:05)
[2023-06-26] MEDS ORDERED: Albuterol Sulf/Ipratropium 3 ML VIAL NEB ONE ×2 (09:35→10:04)
[2023-06-26] MEDS ORDERED: Losartan Potassium 50 MG TAB PO SCH (10:00)
[2023-06-26] MEDS ORDERED: PROPOFOL 200 MG/20 ML VIAL IV ONE (16:41)
[2023-06-27] VITALS: BP 146/82
[2023-06-27 06:33] LABS: BUN 15 mg/dl (9-23); CHLORIDE 105 mmol/L (98-107); POTASSIUM 3.6 mmol/L (3.4-5.1)
[2023-06-27 08:00] VITALS: BP 156/94
[2023-06-27] MEDS ORDERED: FUROSEMIDE 40 MG TAB PO SCH (10:00)
[2023-06-27 12:00] VITALS: BP 155/91
[2023-06-27 13:07] LABS: ACID FAST SPEC PROCESSING Concentration (.)
[2023-06-27 16:00] VITALS: BP 142/91
[2023-06-27 20:00] VITALS: BP 144/77
[2023-06-28] VITALS: BP 153/53
[2023-06-28 06:31] LABS: BUN 15 mg/dl (9-23); CHLORIDE 105 mmol/L (98-107); POTASSIUM 3.4 mmol/L (3.4-5.1)
[2023-06-28 08:00] VITALS: BP 153/69
[2023-06-28] MEDS ORDERED: Doxycycline Hyclate 100 MG CAP PO SCH (11:25)
[2023-06-28 12:00] VITALS: BP 158/72
[2023-06-28] MEDS ORDERED: PREDNISONE10 MG PO (13:32)
[2023-06-28] MEDS ORDERED: DOXYCYCLINE MO100 MG PO (13:32)
[2023-06-28] MEDS ORDERED: Ipratropium Brom3 ML NEB (13:32)
[2023-06-28] MEDS ORDERED: NEBULIZER NEB (13:33)
[2023-06-28] MEDS ORDERED: LEVOFLOXACIN 150 ML IV SCH (16:00)
== END 2023-06-28 14:55 | disposition home or self-care (01) | DRG 189 ==
LOC: ED 16:13 → 4E 18:22 → EDHOLD 18:22 → 4E 20:40
PROVIDERS: Family Medicine; Internal Medicine; Internal Medicine Critical Care Medicine; Student in an Organized Health Care Education/Training Program; ADMIT Student in an Organized Health Care Education/Training Program; ATTEND Student in an Organized Health Care Education/Training Program
PROC: 0BC18ZZ Extirpation of Matter from Trachea, Via Natural or Artificial Opening Endoscopic (ICD-10-PCS; principal; 2023-06-26)
PROC: 0BC98ZZ Extirpation of Matter from Lingula Bronchus, Via Natural or Artificial Opening Endoscopic (ICD-10-PCS; 2023-06-26)
PROC: 0BC48ZZ Extirpation of Matter from Right Upper Lobe Bronchus, Via Natural or Artificial Opening Endoscopic (ICD-10-PCS; 2023-06-26)
PROC: 0BC88ZZ Extirpation of Matter from Left Upper Lobe Bronchus, Via Natural or Artificial Opening Endoscopic (ICD-10-PCS; 2023-06-26)
PROC: 0BC58ZZ Extirpation of Matter from Right Middle Lobe Bronchus, Via Natural or Artificial Opening Endoscopic (ICD-10-PCS; 2023-06-26)
PROC: 0BC38ZZ Extirpation of Matter from Right Main Bronchus, Via Natural or Artificial Opening Endoscopic (ICD-10-PCS; 2023-06-26)
PROC: 0BC78ZZ Extirpation of Matter from Left Main Bronchus, Via Natural or Artificial Opening Endoscopic (ICD-10-PCS; 2023-06-26)
PROC: 0BC68ZZ Extirpation of Matter from Right Lower Lobe Bronchus, Via Natural or Artificial Opening Endoscopic (ICD-10-PCS; 2023-06-26)
PROC: 0BCB8ZZ Extirpation of Matter from Left Lower Lobe Bronchus, Via Natural or Artificial Opening Endoscopic (ICD-10-PCS; 2023-06-26)
DX: J96.01 Acute respiratory failure with hypoxia (principal); E44.1 Mild protein-calorie malnutrition; I50.32 Chronic diastolic (congestive) heart failure; N30.01 Acute cystitis with hematuria; E87.20 Acidosis, unspecified; J45.21 Mild intermittent asthma with (acute) exacerbation; T17.590A Other foreign object in bronchus causing asphyxiation, initial encounter; E11.9 Type 2 diabetes mellitus without complications; I11.0 Hypertensive heart disease with heart failure; J43.2 Centrilobular emphysema; F17.210 Nicotine dependence, cigarettes, uncomplicated; J20.9 Acute bronchitis, unspecified; E87.6 Hypokalemia; I48.0 Paroxysmal atrial fibrillation; Z88.6 Allergy status to analgesic agent; Z88.1 Allergy status to other antibiotic agents; Z88.8 Allergy status to other drugs, medicaments and biological substances; Z82.49 Family history of ischemic heart disease and other diseases of the circulatory system; Z83.6 Family history of other diseases of the respiratory system; Z80.3 Family history of malignant neoplasm of breast; Z90.710 Acquired absence of both cervix and uterus; Z90.49 Acquired absence of other specified parts of digestive tract; Z79.4 Long term (current) use of insulin; Z71.6 Tobacco abuse counseling; W44.F9XA Other object of natural or organic material, entering into or through a natural orifice, initial encounter; Y93.89 Activity, other specified; Y92.89 Other specified places as the place of occurrence of the external cause; Y99.8 Other external cause status; Z22.322 Carrier or suspected carrier of Methicillin resistant Staphylococcus aureus; Z68.30 Body mass index [BMI] 30.0-30.9, adult

== ENCOUNTER 2023-08-15 19:28 | Inpatient (IN) | payer MEDICARE, BC ==
[~2023-08-15] VITALS: Ht 160 cm; Wt 74.4 kg
[~2023-08-15 19:28] MED LIST changes: +ATARAX,VISTARIL10 MG PO; +BASAG SOL IJ; +CARDIZEM CD180 MG PO; +COZAAR50 M1 PO; +CRESTOR5 M1 PO; +DOXYCYCLINE MO100 MG PO; +Ipratropium Brom3 ML NEB; +NEBULIZER NEB; +TOPROL XL200 MG PO; +TRAMADOL HCL50 MG PO; +VITAMIN D31250 MC1 PO; +XARELTO20 M1 PO
[2023-08-15 19:33] VITALS: BP 145/80; BP 87/69
[2023-08-15 20:00] LABS: BASO % 0.6 % (0.0-1.0); EOS # 0.2 10*3/uL (0.0-0.4); EOS % 2.8 % (1.0-4.0); HEMATOCRIT 40.1 % (37.0-47.0); LYMPH # 1.7 10*3/uL (1.3-4.4); LYMPH % 26.2 % (27.0-41.0); MEAN CELL VOLUME 85.3 fl (81.0-99.0); MEAN CORPUSCULAR HGB 27.7 pg (27.0-31.0); MEAN CORPUSCULAR HGB CONC 32.4 g/dl (33.0-37.0); MEAN PLATELET VOLUME 8.9 fl (9.6-12.3); MONO # 0.9 10*3/uL (0.1-1.0); MONO % 13.5 % (3.0-9.0); NEUT # 3.6 10*3/uL (2.3-7.9); NEUT % 56.4 % (47.0-73.0); PLATELET COUNT AUTOMATED 520 10*3/uL (130-400); RED CELL DISTRI WIDTH 16.8 % (0-14.5); WHITE BLOOD COUNT 6.4 10*3/uL (4.8-10.8)
[2023-08-15] MEDS ORDERED: AZITHROMYCIN500 M2 PO (20:11)
[2023-08-15] MEDS ORDERED: ETHAMBUTOL HYD400 MG PO (20:11)
[2023-08-15] MEDS ORDERED: Rimactane,Rifa300 MG PO (20:12)
[2023-08-15 20:26] LABS: ALKALINE PHOSPHATASE 50 U/L (46-116); BUN 9 mg/dl (9-23); CHLORIDE 96 mmol/L (98-107); POTASSIUM 2.6 mmol/L (3.4-5.1); SGPT/ALT 8 U/L (5-49); TOTAL PROTEIN 7.2 gm/dL (6.0-8.0)
[2023-08-15] MEDS ORDERED: SODIUM CHLORIDE 0.9% 1,000 ML IV ONE (20:50)
[2023-08-15] MEDS ORDERED: POTASSIUM CHLORIDE 20 MEQ TAB PO ONE (20:50)
[2023-08-15 21:04] VITALS: BP 124/67
[2023-08-15] MEDS ORDERED: Ondansetron Hydrochloride 4 MG/2 ML VIAL IV ONE (21:45)
[2023-08-15 23:02] VITALS: BP 144/64
[2023-08-16] VITALS (8 sets, daily range): BP systolic 105–147; BP diastolic 56–79
[2023-08-16 04:03] LABS: BILIRUBIN Negative (Negative); BLOOD Trace-Lysed (Negative); CLARITY Clear (Clear); COLOR Yellow (Yellow); GLUCOSE Negative (Negative); KETONE Negative (Negative); LEUKO ESTERASE 1+ (Negative); NITRITE Negative (Negative)
[2023-08-16 04:12] LABS: BACTERIA 1+; RBC 0-2 rbc/hpf (0-2); WBC 16-20 wbc/hpf (0-5)
[2023-08-16] MEDS ORDERED: Ceftriaxone Sodium 1 GM/10 ML SYR IV ONE (04:30)
[2023-08-16] MEDS ORDERED: Ondansetron Hydrochloride 4 MG/2 ML VIAL IV PRN (05:35)
[2023-08-16] MEDS ORDERED: Magnesium Hydroxide 30 ML UDC PO PRN (05:35)
[2023-08-16] MEDS ORDERED: ACETAMINOPHEN 325 MG TAB PO PRN (05:35)
[2023-08-16] MEDS ORDERED: SODIUM CHLORIDE 0.9% 1,000 ML IV ONE (05:45)
[2023-08-16] MEDS ORDERED: DEXTROSE 10 % IN WATER 250 ML IV PRN (05:45)
[2023-08-16 06:35] LABS: BASO % 0.7 % (0.0-1.0); EOS # 0.2 10*3/uL (0.0-0.4); EOS % 2.6 % (1.0-4.0); HEMATOCRIT 38.7 % (37.0-47.0); LYMPH # 1.8 10*3/uL (1.3-4.4); LYMPH % 30.2 % (27.0-41.0); MEAN CELL VOLUME 87.2 fl (81.0-99.0); MEAN CORPUSCULAR HGB 27.7 pg (27.0-31.0); MEAN CORPUSCULAR HGB CONC 31.8 g/dl (33.0-37.0); MONO # 0.7 10*3/uL (0.1-1.0); NEUT # 3.1 10*3/uL (2.3-7.9); PLATELET COUNT AUTOMATED 462 10*3/uL (130-400); RED BLOOD COUNT 4.44 10*6/uL (4.10-5.10); RED CELL DISTRI WIDTH 16.9 % (0-14.5); WHITE BLOOD COUNT 5.8 10*3/uL (4.8-10.8)
[2023-08-16 07:05] LABS: ALKALINE PHOSPHATASE 43 U/L (46-116); BUN 7 mg/dl (9-23); CHLORIDE 100 mmol/L (98-107); POTASSIUM 2.6 mmol/L (3.4-5.1); TOTAL PROTEIN 6.6 gm/dL (6.0-8.0)
[2023-08-16 07:12] LABS: SGPT/ALT < 7 U/L (5-49)
[2023-08-16] MEDS ORDERED: MAGNESIUM SULFATE 50 ML IV ONE (07:25)
[2023-08-16] MEDS ORDERED: INSULIN LISPRO 1 UNIT/0.01 ML SQ SCH (07:30)
[2023-08-16] MEDS ORDERED: POTASSIUM CHLORIDE 20 MEQ TAB PO SCH (10:00)
[2023-08-16] MEDS ORDERED: RIVAROXABAN 20 MG TAB PO SCH (18:00)
[2023-08-16] MEDS ORDERED: Metoprolol Tartrate 25 MG TAB PO SCH (22:00)
[2023-08-16] MEDS ORDERED: Ceftriaxone Sodium 1 GM in SYRINGE INFUSION 10 ML IV SCH (22:00)
[2023-08-17] VITALS: BP 130/66
[2023-08-17 06:45] LABS: BASO # 0.1 10*3/uL (0.0-0.1); BASO % 0.8 % (0.0-1.0); EOS # 0.2 10*3/uL (0.0-0.4); EOS % 2.3 % (1.0-4.0); LYMPH # 1.5 10*3/uL (1.3-4.4); LYMPH % 19.4 % (27.0-41.0); MEAN CELL VOLUME 86.9 fl (81.0-99.0); MEAN CORPUSCULAR HGB 27.2 pg (27.0-31.0); MEAN CORPUSCULAR HGB CONC 31.4 g/dl (33.0-37.0); MEAN PLATELET VOLUME 8.9 fl (9.6-12.3); MONO # 0.9 10*3/uL (0.1-1.0); MONO % 11.9 % (3.0-9.0); NEUT # 5.2 10*3/uL (2.3-7.9); NEUT % 65.3 % (47.0-73.0); PLATELET COUNT AUTOMATED 428 10*3/uL (130-400); RED BLOOD COUNT 4.26 10*6/uL (4.10-5.10); RED CELL DISTRI WIDTH 17.2 % (0-14.5); WHITE BLOOD COUNT 7.9 10*3/uL (4.8-10.8)
[2023-08-17 07:10] LABS: CHLORIDE 104 mmol/L (98-107); POTASSIUM 3.4 mmol/L (3.4-5.1)
[2023-08-17 07:11] LABS: BUN < 5 mg/dl (9-23)
[2023-08-17 08:00] VITALS: BP 121/68
[2023-08-17] MEDS ORDERED: PREPARATION H SRF/SHARK LIVER 1 OZ TUBE R PRN (10:30)
[2023-08-17 12:00] VITALS: BP 131/71
[2023-08-17 16:00] VITALS: BP 155/68
[2023-08-17] MEDS ORDERED: BUDESONIDE0.5 MG/2 M INH (18:27)
[2023-08-17 20:00] VITALS: BP 144/48; BP 147/81
[2023-08-17] MEDS ORDERED: Doxycycline Hyclate 100 MG CAP PO SCH (22:00)
[2023-08-17] MEDS ORDERED: RIVAROXABAN 20 MG TAB PO SCH (22:00)
[2023-08-17] MEDS ORDERED: CELECOXIB 50 MG PO SCH (22:00)
[2023-08-17] MEDS ORDERED: Insulin Glargine, Recombinan 1 UNIT/0.01 ML SC SCH (22:00)
[2023-08-18] VITALS (11 sets, daily range): BP systolic 71–152; BP diastolic 47–82
[2023-08-18 06:26] LABS: ALKALINE PHOSPHATASE 41 U/L (46-116); BUN 6 mg/dl (9-23); CHLORIDE 103 mmol/L (98-107); POTASSIUM 3.6 mmol/L (3.4-5.1); TOTAL PROTEIN 6.6 gm/dL (6.0-8.0)
[2023-08-18 06:29] LABS: SGPT/ALT < 7 U/L (5-49)
[2023-08-18] MEDS ORDERED: Losartan Potassium 100 MG TABLET PO SCH (10:00)
[2023-08-18] MEDS ORDERED: METOPROLOL SUCCINATE XR 100 MG TAB PO SCH (10:00)
[2023-08-18] MEDS ORDERED: DILTIAZEM CD 180 MG CAP PO SCH (10:00)
[2023-08-18] MEDS ORDERED: Insulin Glargine, Recombinan 1 UNIT/0.01 ML SC SCH (10:00)
[2023-08-18] MEDS ORDERED: Metoprolol Tartrate 5 MG/5 ML VIAL IV ONE (10:50)
[2023-08-18] MEDS ORDERED: Diltiazem Hydrochloride 5 ML IV ONE (10:55)
[2023-08-18] MEDS ORDERED: Diltiazem Hydrochloride 125 ML IV ONE (11:05)
[2023-08-19] VITALS (8 sets, daily range): BP systolic 118–157; BP diastolic 50–73
[2023-08-19 06:08] LABS: BASO # 0.1 10*3/uL (0.0-0.1); BASO % 0.8 % (0.0-1.0); EOS # 0.3 10*3/uL (0.0-0.4); EOS % 3.4 % (1.0-4.0); HEMATOCRIT 35.2 % (37.0-47.0); LYMPH # 2.1 10*3/uL (1.3-4.4); LYMPH % 26.6 % (27.0-41.0); MEAN CELL VOLUME 87.3 fl (81.0-99.0); MEAN CORPUSCULAR HGB 27.5 pg (27.0-31.0); MEAN CORPUSCULAR HGB CONC 31.5 g/dl (33.0-37.0); MEAN PLATELET VOLUME 8.7 fl (9.6-12.3); MONO % 12.2 % (3.0-9.0); NEUT # 4.4 10*3/uL (2.3-7.9); NEUT % 56.6 % (47.0-73.0); PLATELET COUNT AUTOMATED 414 10*3/uL (130-400); RED BLOOD COUNT 4.03 10*6/uL (4.10-5.10); RED CELL DISTRI WIDTH 17.6 % (0-14.5); WHITE BLOOD COUNT 7.9 10*3/uL (4.8-10.8)
[2023-08-19 06:17] LABS: ALKALINE PHOSPHATASE 37 U/L (46-116); BUN 8 mg/dl (9-23); CHLORIDE 103 mmol/L (98-107); POTASSIUM 3.1 mmol/L (3.4-5.1); TOTAL PROTEIN 6.2 gm/dL (6.0-8.0)
[2023-08-19 06:18] LABS: SGPT/ALT < 7 U/L (5-49)
[2023-08-19] MEDS ORDERED: RIFAMPIN 300 MG CAP PO SCH (10:00)
[2023-08-19] MEDS ORDERED: AZITHROMYCIN 250 MG TAB PO SCH (10:00)
[2023-08-19] MEDS ORDERED: [UNRECOGNIZED DRUG - OTHER] PO SCH (10:00)
[2023-08-19] MEDS ORDERED: POTASSIUM CHLORIDE 20 MEQ TAB PO ONE (13:05)
[2023-08-20] VITALS: BP 155/68
[2023-08-20 07:57] LABS: BUN 5 mg/dl (9-23); CHLORIDE 107 mmol/L (98-107)
[2023-08-20 08:00] VITALS: BP 169/81
[2023-08-20] MEDS ORDERED: Insulin Glargine, Recombinan 1 UNIT/0.01 ML SC SCH (10:00)
[2023-08-20] MEDS ORDERED: CALCIUM (TUMS) 500MG PO ONE (11:15)
[2023-08-20 12:00] VITALS: BP 157/71
[2023-08-20 14:00] VITALS: BP 157/71
[2023-08-20 20:00] VITALS: BP 160/64
[2023-08-20] MEDS ORDERED: TEMAZEPAM 15 MG CAP PO PRN (22:00)
[2023-08-21] VITALS: BP 155/76
[2023-08-21 08:00] VITALS: BP 149/66
[2023-08-21] MEDS ORDERED: Humalog SQ (10:17)
[2023-08-21] MEDS ORDERED: LANTUS100 UNIT/1 SC (10:17)
[2023-08-21 12:00] VITALS: BP 131/78
== END 2023-08-21 14:31 | DRG 73 ==
LOC: ED 19:28 → EDHOLD 08-16 05:31 → 4E 08-16 05:31
PROVIDERS: Internal Medicine; Student in an Organized Health Care Education/Training Program; ADMIT Student in an Organized Health Care Education/Training Program; ATTEND Student in an Organized Health Care Education/Training Program
DX: G90.9 Disorder of the autonomic nervous system, unspecified (principal); E43 Unspecified severe protein-calorie malnutrition; G93.41 Metabolic encephalopathy; N30.00 Acute cystitis without hematuria; E87.20 Acidosis, unspecified; I50.32 Chronic diastolic (congestive) heart failure; E87.1 Hypo-osmolality and hyponatremia; J41.8 Mixed simple and mucopurulent chronic bronchitis; E86.0 Dehydration; I48.0 Paroxysmal atrial fibrillation; R26.2 Difficulty in walking, not elsewhere classified; E87.6 Hypokalemia; J45.20 Mild intermittent asthma, uncomplicated; I11.0 Hypertensive heart disease with heart failure; R31.1 Benign essential microscopic hematuria; I49.8 Other specified cardiac arrhythmias; K21.9 Gastro-esophageal reflux disease without esophagitis; E11.65 Type 2 diabetes mellitus with hyperglycemia; Z79.4 Long term (current) use of insulin; Z90.710 Acquired absence of both cervix and uterus; Z90.49 Acquired absence of other specified parts of digestive tract; Z82.49 Family history of ischemic heart disease and other diseases of the circulatory system; Z80.3 Family history of malignant neoplasm of breast; Z88.2 Allergy status to sulfonamides; Z88.5 Allergy status to narcotic agent; Z88.8 Allergy status to other drugs, medicaments and biological substances; Z79.899 Other long term (current) drug therapy; Z79.2 Long term (current) use of antibiotics; Z68.29 Body mass index [BMI] 29.0-29.9, adult

== ENCOUNTER 2023-08-24 22:06 | Inpatient (IN) | payer MEDICARE, BC ==
[~2023-08-24] VITALS: Ht 160 cm; Wt 59.0 kg
[~2023-08-24 22:06] MED LIST changes: +AZITHROMYCIN500 M2 PO; +BUDESONIDE0.5 MG/2 M INH; +ETHAMBUTOL HYD400 MG PO; +Humalog SQ; +LANTUS100 UNIT/1 SC; +Rimactane,Rifa300 MG PO
[2023-08-24 22:30] VITALS: BP 147/83
[2023-08-24 23:27] LABS: BASO # 0.1 10*3/uL (0.0-0.1); BASO % 0.7 % (0.0-1.0); EOS # 0.3 10*3/uL (0.0-0.4); EOS % 4.1 % (1.0-4.0); HEMATOCRIT 37.7 % (37.0-47.0); LYMPH # 1.6 10*3/uL (1.3-4.4); LYMPH % 20.8 % (27.0-41.0); MEAN CELL VOLUME 89.3 fl (81.0-99.0); MEAN CORPUSCULAR HGB 27.5 pg (27.0-31.0); MEAN CORPUSCULAR HGB CONC 30.8 g/dl (33.0-37.0); MEAN PLATELET VOLUME 8.9 fl (9.6-12.3); MONO # 1.1 10*3/uL (0.1-1.0); MONO % 14.9 % (3.0-9.0); NEUT # 4.5 10*3/uL (2.3-7.9); NEUT % 59.1 % (47.0-73.0); PLATELET COUNT AUTOMATED 435 10*3/uL (130-400); RED BLOOD COUNT 4.22 10*6/uL (4.10-5.10); RED CELL DISTRI WIDTH 18.3 % (0-14.5); WHITE BLOOD COUNT 7.7 10*3/uL (4.8-10.8)
[2023-08-25] VITALS (7 sets, daily range): BP systolic 137–185; BP diastolic 68–82
[2023-08-25 00:01] LABS: ALKALINE PHOSPHATASE 47 U/L (46-116); BUN 8 mg/dl (9-23); CHLORIDE 105 mmol/L (98-107); POTASSIUM 3.4 mmol/L (3.4-5.1); SGPT/ALT 8 U/L (5-49); TOTAL PROTEIN 6.9 gm/dL (6.0-8.0)
[2023-08-25] MEDS ORDERED: Vancomycin Hydrochloride 250 ML IV ONE (00:45)
[2023-08-25] MEDS ORDERED: ACETAMINOPHEN 650 MG SUPP R PRN (01:10)
[2023-08-25] MEDS ORDERED: Ondansetron Hydrochloride 4 MG/2 ML VIAL IV PRN (01:10)
[2023-08-25] MEDS ORDERED: BISACODYL 5 MG TAB PO PRN (01:10)
[2023-08-25] MEDS ORDERED: ACETAMINOPHEN 325 MG TAB PO PRN (01:10)
[2023-08-25] MEDS ORDERED: BISACODYL 10 MG SUPP R PRN (01:10)
[2023-08-25] MEDS ORDERED: Magnesium Hydroxide 30 ML UDC PO PRN (01:10)
[2023-08-25] MEDS ORDERED: SODIUM CHLORIDE 0.9% 500 ML IV ONE (01:20)
[2023-08-25] MEDS ORDERED: DEXTROSE 10 % IN WATER 250 ML IV PRN (01:30)
[2023-08-25] MEDS ORDERED: hydrOXYzine pamoate 25 MG CAP PO ONE (01:30)
[2023-08-25] MEDS ORDERED: ceFAZolin sodium 1 GM in SYRINGE INFUSION 10 ML IV ONE (01:40)
[2023-08-25] MEDS ORDERED: TRULICITY0.75 MG/0. SC (02:02)
[2023-08-25] MEDS ORDERED: Water, Sterile 10 ML VIAL ONE (02:59)
[2023-08-25 05:54] LABS: ALKALINE PHOSPHATASE 44 U/L (46-116); BUN 5 mg/dl (9-23); CHLORIDE 108 mmol/L (98-107); POTASSIUM 3.4 mmol/L (3.4-5.1); TOTAL PROTEIN 6.9 gm/dL (6.0-8.0)
[2023-08-25 05:55] LABS: SGPT/ALT < 7 U/L (5-49)
[2023-08-25] MEDS ORDERED: CEFEPIME HYDROCHLORIDE IV ONE (06:00)
[2023-08-25] MEDS ORDERED: INFUSION IV ONE (06:00)
[2023-08-25 06:02] LABS: BASO % 0.6 % (0.0-1.0); EOS # 0.2 10*3/uL (0.0-0.4); EOS % 3.5 % (1.0-4.0); HEMATOCRIT 38.1 % (37.0-47.0); LYMPH # 1.6 10*3/uL (1.3-4.4); LYMPH % 25.1 % (27.0-41.0); MEAN CELL VOLUME 88.6 fl (81.0-99.0); MEAN CORPUSCULAR HGB 27.4 pg (27.0-31.0); MEAN PLATELET VOLUME 9.1 fl (9.6-12.3); MONO # 0.9 10*3/uL (0.1-1.0); MONO % 13.6 % (3.0-9.0); NEUT # 3.6 10*3/uL (2.3-7.9); NEUT % 56.9 % (47.0-73.0); PLATELET COUNT AUTOMATED 437 10*3/uL (130-400); RED CELL DISTRI WIDTH 18.1 % (0-14.5); WHITE BLOOD COUNT 6.3 10*3/uL (4.8-10.8)
[2023-08-25] MEDS ORDERED: INSULIN LISPRO 1 UNIT/0.01 ML SQ SCH (07:30)
[2023-08-25] MEDS ORDERED: Albuterol Sulf/Ipratropium 3 ML VIAL NEB PRN (07:40)
[2023-08-25] MEDS ORDERED: hydrOXYzine hydrochloride 10 MG TAB PO PRN (07:40)
[2023-08-25] MEDS ORDERED: SODIUM CHLORIDE 0.9% 50 ML BAG IV ONE (09:12)
[2023-08-25] MEDS ORDERED: ceFAZolin sodium 1 GM VIAL IV ONE (09:12)
[2023-08-25] MEDS ORDERED: Cefepime Hydrochloride 1 GM VIAL IV ONE (09:12)
[2023-08-25] MEDS ORDERED: Insulin Glargine, Recombinan 1 UNIT/0.01 ML SC SCH (10:00)
[2023-08-25] MEDS ORDERED: DILTIAZEM CD 180 MG CAP PO SCH (10:00)
[2023-08-25] MEDS ORDERED: LORATADINE 10 MG TAB PO SCH (10:00)
[2023-08-25] MEDS ORDERED: Losartan Potassium 50 MG TAB PO SCH (10:00)
[2023-08-25] MEDS ORDERED: METOPROLOL SUCCINATE XR 100 MG TAB PO SCH (10:00)
[2023-08-25] MEDS ORDERED: SODIUM CHLORIDE 0.9% 500 ML IV SCH (10:50)
[2023-08-25] MEDS ORDERED: SODIUM CHLORIDE 0.9% 1,000 ML IV ONE (11:23)
[2023-08-25] MEDS ORDERED: ACETAMINOPHEN 100 ML IV ONE (15:15)
[2023-08-25] MEDS ORDERED: PROPOFOL 200 MG/20 ML VIAL IV ONE (16:09)
[2023-08-25] MEDS ORDERED: fentaNYL CITRATE 100 MCG/2 ML VIAL IV ONE (16:09)
[2023-08-25] MEDS ORDERED: Midazolam Hydrochloride 2 MG/2 ML VIAL IV ONE (16:09)
[2023-08-25] MEDS ORDERED: Cefepime Hydrochloride 1 GM in SODIUM CHLORIDE 0.9% 50 ML IV SCH (18:00)
[2023-08-25] MEDS ORDERED: CALCIUM (TUMS) 500MG PO PRN (20:25)
[2023-08-25] MEDS ORDERED: Rosuvastatin Calcium 10 MG TABLET PO SCH (22:00)
[2023-08-26] VITALS: BP 142/61
[2023-08-26] MEDS ORDERED: VANCOMYCIN/WATER FOR INJ (PEG) 250 ML IV SCH
[2023-08-26 06:51] LABS: BASO # 0.1 10*3/uL (0.0-0.1); BASO % 0.9 % (0.0-1.0); EOS # 0.1 10*3/uL (0.0-0.4); EOS % 2.5 % (1.0-4.0); HEMATOCRIT 36.1 % (37.0-47.0); LYMPH # 1.8 10*3/uL (1.3-4.4); LYMPH % 31.2 % (27.0-41.0); MEAN CELL VOLUME 85.7 fl (81.0-99.0); MEAN CORPUSCULAR HGB 27.3 pg (27.0-31.0); MEAN CORPUSCULAR HGB CONC 31.9 g/dl (33.0-37.0); MEAN PLATELET VOLUME 8.6 fl (9.6-12.3); MONO # 0.9 10*3/uL (0.1-1.0); MONO % 15.1 % (3.0-9.0); NEUT # 2.9 10*3/uL (2.3-7.9); NEUT % 49.9 % (47.0-73.0); PLATELET COUNT AUTOMATED 407 10*3/uL (130-400); RED BLOOD COUNT 4.21 10*6/uL (4.10-5.10); RED CELL DISTRI WIDTH 18.3 % (0-14.5); WHITE BLOOD COUNT 5.7 10*3/uL (4.8-10.8)
[2023-08-26 07:13] LABS: BUN 7 mg/dl (9-23); CHLORIDE 105 mmol/L (98-107); POTASSIUM 3.3 mmol/L (3.4-5.1)
[2023-08-26 08:00] VITALS: BP 144/77
[2023-08-26] MEDS ORDERED: [UNRECOGNIZED DRUG - OTHER] PO SCH (10:00)
[2023-08-26] MEDS ORDERED: RIFAMPIN 300 MG CAP PO SCH (10:00)
[2023-08-26 12:00] VITALS: BP 175/87
[2023-08-26] MEDS ORDERED: POTASSIUM CHLORIDE 20 MEQ TAB PO ONE (12:00)
[2023-08-26 16:00] VITALS: BP 120/60
[2023-08-26] MEDS ORDERED: AZITHROMYCIN 100 MG/5 ML BOT PO ONE ×3 (17:40→19:40)
[2023-08-26 20:07] VITALS: BP 149/77
[2023-08-27] VITALS (7 sets, daily range): BP systolic 112–194; BP diastolic 64–93
[2023-08-27 06:30] LABS: BUN 6 mg/dl (9-23); CHLORIDE 102 mmol/L (98-107)
[2023-08-27] MEDS ORDERED: MAGNESIUM SULFATE 50 ML IV ONE (07:05)
[2023-08-27] MEDS ORDERED: RIVAROXABAN 20 MG TAB PO SCH (10:00)
[2023-08-27] MEDS ORDERED: AZITHROMYCIN 250 MG TAB PO SCH (10:00)
[2023-08-27] MEDS ORDERED: POTASSIUM CHLORIDE 20 MEQ TAB PO SCH (10:00)
[2023-08-27] MEDS ORDERED: POTASSIUM CHLORIDE 20 MEQ TAB PO ONE (12:00)
[2023-08-27] MEDS ORDERED: Dicyclomine Hydrochloride 20 MG/10 ML OSYR PO STA (13:29)
[2023-08-27] MEDS ORDERED: Lidocaine Hydrochloride 15 ML UDC PO STA (13:29)
[2023-08-27] MEDS ORDERED: MG-AL HYDROXIDE/SIMETICONE 30 ML UDC PO STA (13:29)
[2023-08-27] MEDS ORDERED: AZITHROMYCIN500 M2 PO (23:40)
[2023-08-27] MEDS ORDERED: CEFTRIAXONE2 G1 IV (23:40)
[2023-08-27] MEDS ORDERED: VANC1PIG IV (23:40)
[2023-08-28] VITALS: BP 132/65
[2023-08-28 06:45] LABS: BASO % 0.5 % (0.0-1.0); EOS # 0.1 10*3/uL (0.0-0.4); EOS % 1.8 % (1.0-4.0); HEMATOCRIT 35.8 % (37.0-47.0); LYMPH # 1.7 10*3/uL (1.3-4.4); LYMPH % 28.2 % (27.0-41.0); MEAN CELL VOLUME 86.7 fl (81.0-99.0); MEAN CORPUSCULAR HGB 27.8 pg (27.0-31.0); MEAN CORPUSCULAR HGB CONC 32.1 g/dl (33.0-37.0); MEAN PLATELET VOLUME 9.2 fl (9.6-12.3); MONO # 0.9 10*3/uL (0.1-1.0); MONO % 14.1 % (3.0-9.0); NEUT # 3.4 10*3/uL (2.3-7.9); NEUT % 55.1 % (47.0-73.0); PLATELET COUNT AUTOMATED 395 10*3/uL (130-400); RED BLOOD COUNT 4.13 10*6/uL (4.10-5.10); RED CELL DISTRI WIDTH 18.3 % (0-14.5); WHITE BLOOD COUNT 6.1 10*3/uL (4.8-10.8)
[2023-08-28 07:42] LABS: BUN 6 mg/dl (9-23); CHLORIDE 105 mmol/L (98-107)
[2023-08-28 07:43] LABS: POTASSIUM 4.4 mmol/L (3.4-5.1)
[2023-08-28 08:00] VITALS: BP 154/97
[2023-08-28] MEDS ORDERED: VANCOMYCIN/WATER FOR INJ (PEG) 150 ML IV SCH (10:00)
[2023-08-28] MEDS ORDERED: SODIUM CHLORIDE 0.9% 10 ML SYR IV PRN (10:50)
[2023-08-28] MEDS ORDERED: HEPARIN SODIUM 300 UNITS/3 ML SYR IV SCH (10:50)
[2023-08-28] MEDS ORDERED: CEFTRIAXONE2 G1 IV (10:58)
[2023-08-28] MEDS ORDERED: AZITHROMYCIN500 M2 PO (10:58)
[2023-08-28] MEDS ORDERED: VANC1PIG IV (10:58)
[2023-08-28 12:00] VITALS: BP 156/81
[2023-08-30] MEDS ORDERED: ERGOCALCIFEROL 50,000 IU CAP (1.25 MG) PO SCH (10:00)
== END 2023-08-28 14:14 | DRG 500 ==
LOC: ED 22:06 → EDHOLD 08-25 00:46 → 4E 08-25 00:46
PROVIDERS: Internal Medicine; Physician Assistant Medical; Student in an Organized Health Care Education/Training Program; ADMIT Internal Medicine; ATTEND Internal Medicine
PROC: 0RBJ0ZZ Excision of Right Shoulder Joint, Open Approach (ICD-10-PCS; principal; 2023-08-25)
PROC: 0MB10ZZ Excision of Right Shoulder Bursa and Ligament, Open Approach (ICD-10-PCS; 2023-08-25)
PROC: 02HV33Z Insertion of Infusion Device into Superior Vena Cava, Percutaneous Approach (ICD-10-PCS; 2023-08-28)
PROC: B548ZZA Ultrasonography of Superior Vena Cava, Guidance (ICD-10-PCS; 2023-08-28)
DX: M75.51 Bursitis of right shoulder (principal); E43 Unspecified severe protein-calorie malnutrition; N17.0 Acute kidney failure with tubular necrosis; M00.9 Pyogenic arthritis, unspecified; I50.32 Chronic diastolic (congestive) heart failure; L02.413 Cutaneous abscess of right upper limb; A31.0 Pulmonary mycobacterial infection; M19.011 Primary osteoarthritis, right shoulder; J44.9 Chronic obstructive pulmonary disease, unspecified; E11.65 Type 2 diabetes mellitus with hyperglycemia; E87.6 Hypokalemia; D64.9 Anemia, unspecified; D75.839 Thrombocytosis, unspecified; I11.0 Hypertensive heart disease with heart failure; I48.0 Paroxysmal atrial fibrillation; Z79.4 Long term (current) use of insulin; Z88.2 Allergy status to sulfonamides; Z88.5 Allergy status to narcotic agent; Z88.8 Allergy status to other drugs, medicaments and biological substances; Z88.1 Allergy status to other antibiotic agents; Z79.51 Long term (current) use of inhaled steroids; Z79.899 Other long term (current) drug therapy; Z90.49 Acquired absence of other specified parts of digestive tract; Z90.710 Acquired absence of both cervix and uterus; Z82.49 Family history of ischemic heart disease and other diseases of the circulatory system; Z80.3 Family history of malignant neoplasm of breast; Z82.5 Family history of asthma and other chronic lower respiratory diseases; Z68.26 Body mass index [BMI] 26.0-26.9, adult

== ENCOUNTER 2023-09-27 14:28 | Inpatient (IN) | payer MEDICARE, BC ==
[~2023-09-27] VITALS: Ht 165.1 cm; Wt 66.8 kg
[~2023-09-27 14:28] MED LIST changes: +CEFTRIAXONE2 G1 IV; +TRULICITY0.75 MG/0. SC; +VANC1PIG IV
[2023-09-27 14:41] VITALS: BP 160/79
[2023-09-27 15:17] LABS: BASO % 0.7 % (0.0-1.0); EOS # 0.1 10*3/uL (0.0-0.4); EOS % 2.4 % (1.0-4.0); HEMATOCRIT 38.9 % (37.0-47.0); LYMPH # 1.3 10*3/uL (1.3-4.4); LYMPH % 22.2 % (27.0-41.0); MEAN CELL VOLUME 88.2 fl (81.0-99.0); MEAN CORPUSCULAR HGB CONC 30.6 g/dl (33.0-37.0); MONO # 1.1 10*3/uL (0.1-1.0); MONO % 17.9 % (3.0-9.0); NEUT # 3.3 10*3/uL (2.3-7.9); NEUT % 56.6 % (47.0-73.0); PLATELET COUNT AUTOMATED 277 10*3/uL (130-400); RED BLOOD COUNT 4.41 10*6/uL (4.10-5.10); RED CELL DISTRI WIDTH 17.7 % (0-14.5); WHITE BLOOD COUNT 5.9 10*3/uL (4.8-10.8)
[2023-09-27 15:33] LABS: ALKALINE PHOSPHATASE 35 U/L (46-116); BUN 12 mg/dl (9-23); CHLORIDE 105 mmol/L (98-107); POTASSIUM 4.4 mmol/L (3.4-5.1); TOTAL PROTEIN 7.3 gm/dL (6.0-8.0)
[2023-09-27 15:38] LABS: SGPT/ALT < 7 U/L (5-49)
[2023-09-27 15:46] LABS: BILIRUBIN Negative (Negative); BLOOD Negative (Negative); CLARITY Clear (Clear); COLOR Dark Yellow (Yellow); GLUCOSE Negative (Negative); KETONE Negative (Negative); LEUKO ESTERASE 1+ (Negative); NITRITE Negative (Negative); PH 6.5 (4.5-8.0); UROBILINOGEN 0.2 E.U./dl (0.0-1.0)
[2023-09-27 16:30] LABS: URINE AMPHETAMINES Negative (1000ng/ml); URINE BARBITURATES Negative (200ng/ml); URINE BENZODIAZEPINES Negative (200ng/ml); URINE CANNABINOIDS (THC) Negative (50ng/ml); URINE COCAINE Negative (300ng/ml); URINE METHADONE Negative (300ng/ml); URINE OPIATES Negative (300ng/ml); URINE PHENCYCLIDINE Negative (25ng/ml)
[2023-09-27 17:50] VITALS: BP 148/76
[2023-09-27] MEDS ORDERED: BISACODYL 10 MG SUPP R PRN (18:25)
[2023-09-27] MEDS ORDERED: Magnesium Hydroxide 30 ML UDC PO PRN (18:25)
[2023-09-27] MEDS ORDERED: DEXTROSE 10 % IN WATER 250 ML IV PRN (18:25)
[2023-09-27] MEDS ORDERED: BISACODYL 5 MG TAB PO PRN (18:25)
[2023-09-27 19:20] LABS: FREE T4 1.05 ng/dl (0.89-1.76); VANCOMYCIN RANDOM 21.6 ug/mL (20-30); VITAMIN D, 25-HYDROXY 82.9 ng/mL (30-100)
[2023-09-27] MEDS ORDERED: Ondansetron4 MG PO (21:07)
[2023-09-27] MEDS ORDERED: POTASSIUM CHLO20 ME3 PO (21:09)
[2023-09-27] MEDS ORDERED: REGLAN5 MG PO (21:10)
[2023-09-27] MEDS ORDERED: INSULIN LISPRO 1 UNIT/0.01 ML SQ SCH (22:00)
[2023-09-27] MEDS ORDERED: hydrOXYzine pamoate 25 MG CAP PO ONE (22:25)
[2023-09-27 23:59] VITALS: BP 178/90
[2023-09-28] MEDS ORDERED: hydrOXYzine pamoate 25 MG CAP PO ONE ×2 (00:15→21:30)
[2023-09-28 04:23] VITALS: BP 170/77
[2023-09-28] MEDS ORDERED: Pantoprazole Sodium 40 MG TAB PO SCH (06:00)
[2023-09-28 06:01] LABS: BUN 8 mg/dl (9-23); CHLORIDE 106 mmol/L (98-107); POTASSIUM 3.8 mmol/L (3.4-5.1)
[2023-09-28 06:10] LABS: BASO # 0.1 10*3/uL (0.0-0.1); BASO % 1.1 % (0.0-1.0); EOS # 0.2 10*3/uL (0.0-0.4); EOS % 2.6 % (1.0-4.0); HEMATOCRIT 37.7 % (37.0-47.0); LYMPH # 1.3 10*3/uL (1.3-4.4); LYMPH % 20.8 % (27.0-41.0); MEAN CELL VOLUME 86.7 fl (81.0-99.0); MEAN CORPUSCULAR HGB CONC 32.4 g/dl (33.0-37.0); MEAN PLATELET VOLUME 10.1 fl (9.6-12.3); MONO # 1.1 10*3/uL (0.1-1.0); MONO % 18.3 % (3.0-9.0); NEUT # 3.5 10*3/uL (2.3-7.9); PLATELET COUNT AUTOMATED 248 10*3/uL (130-400); RED BLOOD COUNT 4.35 10*6/uL (4.10-5.10); RED CELL DISTRI WIDTH 17.5 % (0-14.5); WHITE BLOOD COUNT 6.1 10*3/uL (4.8-10.8)
[2023-09-28 07:41] VITALS: BP 173/92
[2023-09-28] MEDS ORDERED: METOPROLOL SUCCINATE XR 100 MG TAB PO SCH (10:00)
[2023-09-28] MEDS ORDERED: Losartan Potassium 100 MG TABLET PO SCH (10:00)
[2023-09-28] MEDS ORDERED: Vancomycin Hydrochloride 1,000 MG in SODIUM CHLORIDE 0.9% 250 ML IV SCH (14:50)
[2023-09-28 15:01] VITALS: BP 198/85
[2023-09-28] MEDS ORDERED: Ceftriaxone Sodium 2 GM in SYRINGE INFUSION 20 ML IV SCH (16:00)
[2023-09-28] MEDS ORDERED: VANCOMYCIN/WATER FOR INJ (PEG) 150 ML IV SCH (18:00)
[2023-09-28] MEDS ORDERED: RIVAROXABAN 15 MG TAB PO SCH (18:00)
[2023-09-28] MEDS ORDERED: Midazolam Hydrochloride 2 MG/2 ML VIAL IV ONE (21:50)
[2023-09-29 01:47] VITALS: BP 154/82
[2023-09-29 06:26] LABS: BASO # 0.1 10*3/uL (0.0-0.1); BASO % 0.8 % (0.0-1.0); EOS # 0.2 10*3/uL (0.0-0.4); EOS % 2.8 % (1.0-4.0); HEMATOCRIT 37.2 % (37.0-47.0); LYMPH # 1.6 10*3/uL (1.3-4.4); MEAN CELL VOLUME 86.7 fl (81.0-99.0); MEAN CORPUSCULAR HGB 27.3 pg (27.0-31.0); MEAN CORPUSCULAR HGB CONC 31.5 g/dl (33.0-37.0); MEAN PLATELET VOLUME 9.8 fl (9.6-12.3); MONO # 0.9 10*3/uL (0.1-1.0); NEUT # 3.7 10*3/uL (2.3-7.9); NEUT % 57.9 % (47.0-73.0); PLATELET COUNT AUTOMATED 265 10*3/uL (130-400); RED BLOOD COUNT 4.29 10*6/uL (4.10-5.10); RED CELL DISTRI WIDTH 17.5 % (0-14.5); WHITE BLOOD COUNT 6.5 10*3/uL (4.8-10.8)
[2023-09-29 06:53] LABS: ALKALINE PHOSPHATASE 32 U/L (46-116); BUN 10 mg/dl (9-23); CHLORIDE 104 mmol/L (98-107); CPK 29 U/L (34-171); POTASSIUM 3.7 mmol/L (3.4-5.1); TOTAL PROTEIN 6.6 gm/dL (6.0-8.0)
[2023-09-29 06:54] LABS: SGPT/ALT < 7 U/L (5-49)
[2023-09-29 08:13] VITALS: BP 154/74
[2023-09-29 13:55] VITALS: BP 134/64
[2023-09-29] MEDS ORDERED: Albuterol Sulf/Ipratropium 3 ML VIAL NEB PRN (15:00)
[2023-09-29] MEDS ORDERED: NYSTATIN 15 GM BOT T PRN (15:05)
[2023-09-29] MEDS ORDERED: BUDESONIDE 0.5 MG AMP NEB PRN (15:05)
[2023-09-29 16:00] VITALS: BP 141/51
[2023-09-29] MEDS ORDERED: Metoclopramide Hydrochloride 5 MG TAB PO SCH (16:00)
[2023-09-29 20:00] VITALS: BP 107/82; BP 148/80
[2023-09-30] VITALS: BP 156/84
[2023-09-30 04:12] LABS: BASO # 0.1 10*3/uL (0.0-0.1); BASO % 0.8 % (0.0-1.0); EOS # 0.2 10*3/uL (0.0-0.4); EOS % 3.3 % (1.0-4.0); HEMATOCRIT 36.8 % (37.0-47.0); LYMPH # 1.9 10*3/uL (1.3-4.4); MEAN CELL VOLUME 84.8 fl (81.0-99.0); MEAN CORPUSCULAR HGB 27.6 pg (27.0-31.0); MEAN CORPUSCULAR HGB CONC 32.6 g/dl (33.0-37.0); MEAN PLATELET VOLUME 9.9 fl (9.6-12.3); MONO # 0.9 10*3/uL (0.1-1.0); MONO % 13.7 % (3.0-9.0); NEUT # 3.6 10*3/uL (2.3-7.9); NEUT % 53.9 % (47.0-73.0); PLATELET COUNT AUTOMATED 294 10*3/uL (130-400); RED BLOOD COUNT 4.34 10*6/uL (4.10-5.10); RED CELL DISTRI WIDTH 17.6 % (0-14.5); WHITE BLOOD COUNT 6.6 10*3/uL (4.8-10.8)
[2023-09-30 04:33] LABS: POTASSIUM 3.6 mmol/L (3.4-5.1)
[2023-09-30 08:00] VITALS: BP 169/90
[2023-09-30] MEDS ORDERED: ATORVASTATIN CALCIUM 20 MG TAB PO SCH (10:00)
[2023-09-30] MEDS ORDERED: AMOXICILLIN 500 MG CAP PO SCH (10:00)
[2023-09-30] MEDS ORDERED: [UNRECOGNIZED DRUG - OTHER] PO SCH (10:00)
[2023-09-30] MEDS ORDERED: DILTIAZEM CD 180 MG CAP PO SCH (10:00)
[2023-09-30] MEDS ORDERED: RIFAMPIN 300 MG CAP PO SCH (10:00)
[2023-09-30] MEDS ORDERED: AZITHROMYCIN 250 MG TAB PO SCH (10:00)
[2023-09-30] MEDS ORDERED: LORATADINE 10 MG TAB PO SCH (10:00)
[2023-09-30] MEDS ORDERED: POTASSIUM CHLORIDE 20 MEQ TAB PO SCH (10:00)
[2023-09-30] MEDS ORDERED: Insulin Glargine, Recombinan 1 UNIT/0.01 ML SC SCH (10:00)
[2023-09-30 12:00] VITALS: BP 158/79
[2023-09-30 14:26] VITALS: BP 152/72
[2023-09-30 16:00] VITALS: BP 120/55
[2023-09-30 20:00] VITALS: BP 139/59
[2023-09-30] MEDS ORDERED: AMMONIUM LACTATE 12% LOTION T SCH (22:00)
[2023-10-01] VITALS: BP 150/75
[2023-10-01 04:17] LABS: BASO # 0.1 10*3/uL (0.0-0.1); BASO % 0.9 % (0.0-1.0); EOS # 0.2 10*3/uL (0.0-0.4); EOS % 4.3 % (1.0-4.0); HEMATOCRIT 37.1 % (37.0-47.0); LYMPH # 1.4 10*3/uL (1.3-4.4); LYMPH % 25.9 % (27.0-41.0); MEAN CELL VOLUME 86.9 fl (81.0-99.0); MEAN CORPUSCULAR HGB 27.9 pg (27.0-31.0); MEAN CORPUSCULAR HGB CONC 32.1 g/dl (33.0-37.0); MEAN PLATELET VOLUME 9.9 fl (9.6-12.3); MONO # 0.9 10*3/uL (0.1-1.0); MONO % 17.3 % (3.0-9.0); NEUT # 2.7 10*3/uL (2.3-7.9); NEUT % 51.4 % (47.0-73.0); PLATELET COUNT AUTOMATED 275 10*3/uL (130-400); RED BLOOD COUNT 4.27 10*6/uL (4.10-5.10); RED CELL DISTRI WIDTH 17.6 % (0-14.5); WHITE BLOOD COUNT 5.3 10*3/uL (4.8-10.8)
[2023-10-01 04:39] LABS: BUN 10 mg/dl (9-23); CHLORIDE 106 mmol/L (98-107); POTASSIUM 3.5 mmol/L (3.4-5.1)
[2023-10-01 08:00] VITALS: BP 164/84
[2023-10-01 12:00] VITALS: BP 168/72
[2023-10-01 16:00] VITALS: BP 179/94
[2023-10-01 20:00] VITALS: BP 142/84
[2023-10-02] VITALS (10 sets, daily range): BP systolic 147–207; BP diastolic 78–97
[2023-10-02 07:07] LABS: BASO # 0.1 10*3/uL (0.0-0.1); EOS # 0.2 10*3/uL (0.0-0.4); EOS % 3.3 % (1.0-4.0); HEMATOCRIT 37.3 % (37.0-47.0); LYMPH # 1.2 10*3/uL (1.3-4.4); LYMPH % 20.5 % (27.0-41.0); MEAN CORPUSCULAR HGB 27.7 pg (27.0-31.0); MEAN PLATELET VOLUME 9.7 fl (9.6-12.3); NEUT # 3.6 10*3/uL (2.3-7.9); NEUT % 58.9 % (47.0-73.0); PLATELET COUNT AUTOMATED 286 10*3/uL (130-400); RED BLOOD COUNT 4.44 10*6/uL (4.10-5.10); RED CELL DISTRI WIDTH 17.6 % (0-14.5); WHITE BLOOD COUNT 6.1 10*3/uL (4.8-10.8)
[2023-10-02 07:16] LABS: BUN 9 mg/dl (9-23); CHLORIDE 107 mmol/L (98-107); POTASSIUM 3.5 mmol/L (3.4-5.1)
[2023-10-02] MEDS ORDERED: Ondansetron Hydrochloride 4 MG TAB PO PRN (11:20)
[2023-10-02] MEDS ORDERED: hydrALAZINE hydrochloride 20 MG/ML VIAL IV ONE (18:40)
[2023-10-02] MEDS ORDERED: Metoprolol Tartrate 5 MG/5 ML VIAL IV ONE (21:30)
[2023-10-02] MEDS ORDERED: ACETAMINOPHEN 325 MG TAB PO ONE (21:40)
[2023-10-02] MEDS ORDERED: ACETAMINOPHEN 650 MG SUPP R PRN (22:00)
[2023-10-03] VITALS (8 sets, daily range): BP systolic 120–158; BP diastolic 74–100
[2023-10-03] MEDS ORDERED: IOHEXOL 350 MG/ML 100 ML VIAL IV ONE (00:15)
[2023-10-03] MEDS ORDERED: Labetalol Hydrochloride 20 MG/4 ML SYR IV ONE (00:15)
[2023-10-03] MEDS ORDERED: SODIUM CHLORIDE 0.9% 100 ML BAG IV ONE (00:15)
[2023-10-03] MEDS ORDERED: LORazepam 2 MG/ML VIAL IV PRN (01:10)
[2023-10-03] MEDS ORDERED: LEVETIRACETAM IN NACL (ISO-OS) 100 ML IV ONE ×2 (01:10→01:32)
[2023-10-03] MEDS ORDERED: DILTIAZEM HYDROCHLORIDE IV SCH (01:30)
[2023-10-03] MEDS ORDERED: SODIUM CHLORIDE 0.9% 500 ML IV ONE ×2 (01:55→02:08)
[2023-10-03 02:05] LABS: BASO % 0.4 % (0.0-1.0); HEMATOCRIT 39.5 % (37.0-47.0); LYMPH # 1.1 10*3/uL (1.3-4.4); LYMPH % 12.8 % (27.0-41.0); MEAN CELL VOLUME 86.1 fl (81.0-99.0); MEAN CORPUSCULAR HGB 27.5 pg (27.0-31.0); MEAN CORPUSCULAR HGB CONC 31.9 g/dl (33.0-37.0); MEAN PLATELET VOLUME 9.9 fl (9.6-12.3); MONO # 0.8 10*3/uL (0.1-1.0); MONO % 10.3 % (3.0-9.0); NEUT # 6.2 10*3/uL (2.3-7.9); NEUT % 76.3 % (47.0-73.0); PLATELET COUNT AUTOMATED 330 10*3/uL (130-400); RED BLOOD COUNT 4.59 10*6/uL (4.10-5.10); RED CELL DISTRI WIDTH 17.3 % (0-14.5); WHITE BLOOD COUNT 8.2 10*3/uL (4.8-10.8)
[2023-10-03 02:30] LABS: POTASSIUM 3.3 mmol/L (3.4-5.1); TOTAL PROTEIN 7.1 gm/dL (6.0-8.0)
[2023-10-03] MEDS ORDERED: Ondansetron Hydrochloride 4 MG/2 ML VIAL IV PRN (03:30)
[2023-10-03] MEDS ORDERED: PANTOPRAZOLE SODIUM IV SCH (06:00)
[2023-10-03] MEDS ORDERED: Pantoprazole Sodium 40 MG VIAL IV SCH (07:01)
[2023-10-03] MEDS ORDERED: POTASSIUM CHLORIDE IN WATER 100 ML IV SCH (10:00)
[2023-10-03] MEDS ORDERED: LEVETIRACETAM 500 MG TAB PO SCH (10:00)
[2023-10-03] MEDS ORDERED: Metoprolol Tartrate 5 MG/5 ML VIAL IV SCH (18:00)
[2023-10-03] MEDS ORDERED: SODIUM CHLORIDE 0.9% 1,000 ML IV SCH (19:50)
[2023-10-04] VITALS: BP 154/76
[2023-10-04 05:35] VITALS: BP 157/92
[2023-10-04 06:29] LABS: BASO % 0.5 % (0.0-1.0); EOS # 0.1 10*3/uL (0.0-0.4); EOS % 0.8 % (1.0-4.0); HEMATOCRIT 36.8 % (37.0-47.0); LYMPH # 1.3 10*3/uL (1.3-4.4); LYMPH % 16.7 % (27.0-41.0); MEAN CORPUSCULAR HGB 27.4 pg (27.0-31.0); MEAN CORPUSCULAR HGB CONC 31.5 g/dl (33.0-37.0); MEAN PLATELET VOLUME 9.7 fl (9.6-12.3); MONO # 1.3 10*3/uL (0.1-1.0); MONO % 16.2 % (3.0-9.0); NEUT # 5.2 10*3/uL (2.3-7.9); NEUT % 65.5 % (47.0-73.0); PLATELET COUNT AUTOMATED 276 10*3/uL (130-400); RED BLOOD COUNT 4.23 10*6/uL (4.10-5.10); RED CELL DISTRI WIDTH 17.9 % (0-14.5)
[2023-10-04 07:15] LABS: POTASSIUM 3.6 mmol/L (3.4-5.1); TOTAL PROTEIN 6.4 gm/dL (6.0-8.0)
[2023-10-04 08:00] VITALS: BP 140/66
[2023-10-04] MEDS ORDERED: Enoxaparin Sodium 80 MG/0.8 ML SYR SC SCH (10:00)
[2023-10-04 12:00] VITALS: BP 142/62
[2023-10-04 16:00] VITALS: BP 159/81
[2023-10-04 20:00] VITALS: BP 152/74
[2023-10-04] MEDS ORDERED: SODIUM CHLORIDE 0.9% 1,000 ML IV ONE (23:20)
[2023-10-05] VITALS: BP 154/74
[2023-10-05 08:00] VITALS: BP 100/50
[2023-10-05] MEDS ORDERED: MORPHINE Sulfate 2 MG/ML SYR IV PRN ×2 (11:05→17:25)
[2023-10-05 12:00] VITALS: BP 114/81
[2023-10-05] MEDS ORDERED: LORazepam 2 MG/ML VIAL IV PRN (17:25)
[2023-10-05] MEDS ORDERED: HYOSCYAMINE SULFATE 0.125 MG TAB SL PRN (17:30)
[2023-10-05] MEDS ORDERED: BISACODYL 10 MG SUPP R PRN (17:30)
[2023-10-05] MEDS ORDERED: ACETAMINOPHEN 650 MG SUPP R PRN (17:30)
== END 2023-10-05 17:47 | disposition hospice, inpatient (51) | DRG 70 ==
LOC: ED 14:28 → EDHOLD 17:31 → 4E 17:31 → EDHOLD 09-28 07:46 → 4E 09-29 12:40
PROVIDERS: Student in an Organized Health Care Education/Training Program; ADMIT Student in an Organized Health Care Education/Training Program; ATTEND Student in an Organized Health Care Education/Training Program
PROC: 05HB33Z Insertion of Infusion Device into Right Basilic Vein, Percutaneous Approach (ICD-10-PCS; principal; 2023-10-01)
PROC: B54MZZA Ultrasonography of Right Upper Extremity Veins, Guidance (ICD-10-PCS; 2023-10-01)
DX: G93.41 Metabolic encephalopathy (principal); I63.511 Cerebral infarction due to unspecified occlusion or stenosis of right middle cerebral artery; N17.0 Acute kidney failure with tubular necrosis; A31.0 Pulmonary mycobacterial infection; M00.9 Pyogenic arthritis, unspecified; N39.0 Urinary tract infection, site not specified; I50.32 Chronic diastolic (congestive) heart failure; Z16.21 Resistance to vancomycin; I47.19 Other supraventricular tachycardia; K21.9 Gastro-esophageal reflux disease without esophagitis; J45.909 Unspecified asthma, uncomplicated; I48.0 Paroxysmal atrial fibrillation; E11.65 Type 2 diabetes mellitus with hyperglycemia; D50.9 Iron deficiency anemia, unspecified; E11.69 Type 2 diabetes mellitus with other specified complication; J44.9 Chronic obstructive pulmonary disease, unspecified; I11.0 Hypertensive heart disease with heart failure; N81.10 Cystocele, unspecified; R13.19 Other dysphagia; Z66 Do not resuscitate; Z51.5 Encounter for palliative care; Z90.49 Acquired absence of other specified parts of digestive tract; Z90.710 Acquired absence of both cervix and uterus; Z82.49 Family history of ischemic heart disease and other diseases of the circulatory system; Z83.6 Family history of other diseases of the respiratory system; Z80.3 Family history of malignant neoplasm of breast; Z22.39 Carrier of other specified bacterial diseases

== ENCOUNTER 2023-10-05 17:58 | Inpatient (IN) | payer OTHER ==
[~2023-10-05] VITALS: Ht 165.1 cm; Wt 66.8 kg
[~2023-10-05 17:58] MED LIST changes: +Ondansetron4 MG PO; +POTASSIUM CHLO20 ME3 PO; +REGLAN5 MG PO
[2023-10-05] MEDS ORDERED: BISACODYL 10 MG SUPP R PRN (18:05)
[2023-10-05] MEDS ORDERED: LORazepam 2 MG/ML VIAL IV PRN (18:10)
[2023-10-05] MEDS ORDERED: HYOSCYAMINE SULFATE 0.125 MG TAB SL PRN (18:10)
[2023-10-05] MEDS ORDERED: ACETAMINOPHEN 650 MG SUPP R PRN (18:10)
[2023-10-05] MEDS ORDERED: MORPHINE Sulfate 2 MG/ML SYR IV PRN (18:10)
[2023-10-06] VITALS: BP 153/87
[2023-10-06 08:00] VITALS: BP 162/98
[2023-10-06 14:00] VITALS: BP 154/91
[2023-10-07 08:00] VITALS: BP 137/78
[2023-10-07] MEDS ORDERED: LORazepam 2 MG/ML VIAL IV SCH (12:00)
[2023-10-07] MEDS ORDERED: MORPHINE Sulfate 2 MG/ML SYR IV SCH (12:10)
[2023-10-07 15:32] VITALS: BP 154/91
[2023-10-07 20:00] VITALS: BP 112/68
[2023-10-08] VITALS: BP 109/40
[2023-10-08 08:00] VITALS: BP 109/64
[2023-10-08] MEDS ORDERED: LORazepam 2 MG/ML VIAL IV PRN (11:50)
[2023-10-08] MEDS ORDERED: MORPHINE Sulfate 2 MG/ML SYR IV PRN (11:55)
[2023-10-08] MEDS ORDERED: Morphine Sulfate 10 MG/0.5 ML CONCENTRATE ORAL SYRINGE SL SCH ×3 (12:00→16:00)
[2023-10-08] MEDS ORDERED: LORazepam 0.5 MG TAB SL SCH (12:00)
[2023-10-08 16:00] VITALS: BP 62/41
[2023-10-08 20:00] VITALS: BP 128/87
[2023-10-09] VITALS: BP 110/73
[2023-10-09] MEDS ORDERED: Morphine Sulfate 10 MG/0.5 ML CONCENTRATE ORAL SYRINGE SL SCH (12:00)
[2023-10-09 16:00] VITALS: BP 147/99
[2023-10-09 20:00] VITALS: BP 121/63
[2023-10-10] VITALS: BP 112/72; BP 116/53
[2023-10-10] MEDS ORDERED: LORazepam 2 MG/ML VIAL IV PRN ×2 (10:30→10:35)
[2023-10-10] MEDS ORDERED: Morphine Sulfate 10 MG/0.5 ML CONCENTRATE ORAL SYRINGE SL SCH (12:00)
[2023-10-10 16:00] VITALS: BP 102/48
[2023-10-10 20:00] VITALS: BP 88/56
[2023-10-11] VITALS: BP 80/36
== END 2023-10-11 03:42 | DRG 64 ==
LOC: 4E 17:58
PROVIDERS: ADMIT Student in an Organized Health Care Education/Training Program; ATTEND Student in an Organized Health Care Education/Training Program
DX: I63.511 Cerebral infarction due to unspecified occlusion or stenosis of right middle cerebral artery (principal); G93.41 Metabolic encephalopathy; N17.0 Acute kidney failure with tubular necrosis; I50.32 Chronic diastolic (congestive) heart failure; M00.9 Pyogenic arthritis, unspecified; D50.9 Iron deficiency anemia, unspecified; K21.9 Gastro-esophageal reflux disease without esophagitis; I11.0 Hypertensive heart disease with heart failure; E11.65 Type 2 diabetes mellitus with hyperglycemia; I48.0 Paroxysmal atrial fibrillation; J44.9 Chronic obstructive pulmonary disease, unspecified; Z51.5 Encounter for palliative care; Z22.39 Carrier of other specified bacterial diseases; Z79.899 Other long term (current) drug therapy; Z79.01 Long term (current) use of anticoagulants; Z79.2 Long term (current) use of antibiotics